=== PATIENT | male | born 1950 | race Caucasian/White ===

== ENCOUNTER 2020-09-16 07:15 | Outpatient (REF) | payer MEDICARE, MEDICAID, SELFPAY | END 2020-09-16 07:16 | disposition home or self-care (01) | LOC: HO.LAB 07:15 | PROVIDERS: PCP Internal Medicine; Visit Provider Internal Medicine | DX: Z20.828 Contact with and (suspected) exposure to other viral communicable diseases (principal) | CPT/HCPCS: C9803; U0003 ==

== ENCOUNTER 2020-11-04 09:07 | Outpatient (REF) | payer MEDICARE, MEDICAID, SELFPAY ==
[2020-11-04 11:11] LABS: MANUAL DIFF FLAG NO
[2020-11-04 11:25] LABS: Glucose Urine UA NEG (NEG); Leukocyte Esterase Urine NEG (NEG); Nitrite Urine NEG (NEG); Specific Gravity - Urine 1.025 (1.005-1.025); Urine Blood NEG (NEG); Urine Ketones NEG (NEG); Urine Protein NEG (NEG-TRACE)
[2020-11-04 11:28] LABS: Appearance Urine CLEAR; Color Urine YELLOW
[2020-11-04 11:39] LABS: Basophils Percent Auto 0.6 % (0-2); Eosinophils Absolute Auto 0.3 X10*3/uL (0.0-0.4); Hematocrit 52.1 % (42-52); Hemoglobin 17.2 g/dl (14.0-18.0); Imm Gran Abs Auto 0.02 X10*3/uL (0.00-0.03); Imm Gran Pct Auto 0.4 % (0.0-0.4); Lymphocytes Absolute Auto 1.1 X10*3/uL (1.2-4.9); Lymphocytes Percent Auto 21.5 % (20-40); Mean Corpuscular Hemoglobin 30.2 pg (27.0-33.0); Mean Corpuscular Volume 91.6 fL (80-98); Mean Platelet Volume 11.2 fL (9.4-12.4); Monocytes Absolute Auto 0.7 X10*3/uL (0.1-1.2); Monocytes Percent Auto 12.9 % (2-11); Neutrophils Percent Auto 59.6 % (45-73); Platelet Count 189 X10*3/uL (160-400); Red Blood Count 5.69 X10*6/uL (4.60-5.80); Red Cell Distribution Width 13.4 % (11.0-16.0)
[2020-11-04 11:51] LABS: Alanine Aminotransferase 20 U/L (0-40); Albumin Level 4.3 g/dL (3.5-5.0); Alkaline Phosphatase 97 U/L (39-117); Anion Gap 11 (12-20); Aspartate Amino Transferase 22 U/L (5-37); Bilirubin Total 1.7 mg/dL (0.0-1.0); Blood Urea Nitrogen 16 mg/dL (9-16); Calcium 9.2 mg/dL (8.4-10.2); Carbon Dioxide 29 mmol/L (22-29); Chloride 104 mmol/L (96-108); Cholesterol 190 mg/dL; Estimated Glomerular Filt Rate > 60; Glucose Fasting 99 mg/dL (60-99); HDL Cholesterol 58 mg/dL; LDL Cholesterol Calculated 119 mg/dl; Potassium 4.3 mmol/L (3.3-5.1); Sodium 140 mmol/L (135-145); Total Protein 7.3 g/dL (6.5-8.0); Triglycerides 66 mg/dL
[2020-11-04 12:16] LABS: RBC Urine 0-2 /HPF (0); WBC Urine 0-2 /HPF (0-4)
[2020-11-04 12:17] LABS: Mucus Urine 1+ /LPF; Squamous Epithelial Cell Urine 1+ /LPF
[2020-11-04 12:19] LABS: Prostate Specific Antigen Scr 1.82 ng/mL (<0.05-4.0)
== END 2020-11-04 09:08 | disposition home or self-care (01) ==
LOC: HO.HMGCLDS 09:07
PROVIDERS: PCP Internal Medicine; Visit Provider Internal Medicine
DX: E78.5 Hyperlipidemia, unspecified (principal); F41.9 Anxiety disorder, unspecified; Z87.891 Personal history of nicotine dependence; Z12.5 Encounter for screening for malignant neoplasm of prostate
CPT/HCPCS: 36415; 80053; 80061; 81001; 84153; 85025

== ENCOUNTER 2020-12-01 09:42 | Outpatient (REF) | payer MEDICARE, MEDICAID, SELFPAY ==
--- NOTE | ~2020-12-01 | CT_ITS ---
EXAMINATION: CT CHEST SCREENING CLINICAL INFORMATION: Personal history of nicotine dependence. COMPARISON: None. TECHNIQUE: Multidetector volumetric CT imaging of the chest is performed without contrast using low dose technique. Additional 2D coronal and sagittal reformatted images and axial 3D maximum intensity projection (MIP) images are generated on the CT workstation. This CT examination was performed using dose optimization techniques as appropriate, variously including the following: *Automated exposure control *Adjustment of mA and/or kV according to patient size (this includes techniques or standardized protocols for targeted exams where dose is matched to indication/reason for exam; i.e. extremities or head) *Use of iterative reconstruction technique DLP: 77 mGy-cm FINDINGS: LUNGS: The lungs are well expanded and clear of acute pneumonic consolidation. There is minimal atelectatic changes in both lung bases. There are bilateral 3 cm cysts in both lung bases. MEDIASTINUM: The thyroid lobes are symmetrical and normal. The central trachea and the bronchi are widely patent. The heart size and great vessels are normal caliber. There are coronary artery calcifications present. PLEURA: There is no pleural effusion. No pleural mass or thickening. AXILLA: No lymphadenopathy. UPPER ABDOMEN: Visualized liver, spleen and pancreas is unremarkable. OSSEOUS STRUCTURES: No lytic or sclerotic process seen. There is moderate ventral spondylosis throughout mid and lower dorsal spine. No lytic process. CT/CT lung screening IMPRESSION: No evidence of pulmonary nodule, mass or consolidation. Minimal atelectatic changes in both lung bases. ASSESSMENT: Lung-RADS category: 1, benign RECOMMENDATION: Low dose annual CT chest exam.
== END 2020-12-01 09:43 | disposition home or self-care (01) ==
LOC: HO.CT 09:42
PROVIDERS: Visit Provider Physician Assistant Medical
DX: Z12.2 Encounter for screening for malignant neoplasm of respiratory organs (principal); Z87.891 Personal history of nicotine dependence
CPT/HCPCS: 71271

== ENCOUNTER 2021-07-29 13:15 | Outpatient (REF) | payer MEDICARE, MEDICAID, SELFPAY ==
--- NOTE | ~2021-07-29 | XR_ITS ---
EXAMINATION: XR KNEE, LEFT CLINICAL INFORMATION: Pain. COMPARISON: No similar priors. TECHNIQUE: Four views of the left knee. FINDINGS: No evidence of acute fractures or malalignment. There are mild degenerative changes with joint space narrowing, subcortical sclerosis and osteophytes, more prominent in the medial compartment. Enthesophytes as well as visualized in the upper pole of the patella. No erosive changes or chondrocalcinosis. Very mild vascular calcifications. No joint effusions. XR/XR knee LT 4V IMPRESSION: No acute osseous fractures or malalignment. Mild degenerative osteoarthritis as above.
== END 2021-07-29 13:16 | disposition home or self-care (01) ==
LOC: HO.HMGCX 13:15
PROVIDERS: PCP Internal Medicine; Visit Provider Internal Medicine
DX: M70.50 Other bursitis of knee, unspecified knee (principal)
CPT/HCPCS: 73564

== ENCOUNTER 2021-08-23 08:16 | Outpatient (REF) | payer MEDICARE, MEDICAID, SELFPAY ==
--- NOTE | ~2021-08-23 | XR_ITS ---
EXAMINATION: XR KNEE AP STANDING CLINICAL INFORMATION: Pain COMPARISON: Left knee x-ray 07/29/2021 TECHNIQUE: AP bilateral standing view of the knees was obtained. FINDINGS: Bone alignment is normal. No fracture or dislocation is seen. There is mild left medial femoral tibial joint space narrowing. Soft tissues are unremarkable. XR/XR knee standing BI IMPRESSION: Mild left medial femoral tibial joint space narrowing.
== END 2021-08-23 08:17 | disposition home or self-care (01) ==
LOC: HO.HOSX 08:16
PROVIDERS: PCP Internal Medicine; Visit Provider Orthopaedic Surgery
DX: M23.92 Unspecified internal derangement of left knee (principal)
CPT/HCPCS: 73565; 99202

== ENCOUNTER 2021-11-15 08:18 | Outpatient (REF) | payer MEDICARE, MEDICAID, SELFPAY ==
[2021-11-15 11:17] LABS: Hematocrit 49.6 % (42.0-52.0); Hemoglobin 16.2 g/dl (14.0-18.0); Mean Corpuscular HGB Conc 32.7 g/dl (31.0-36.0); Mean Corpuscular Volume 91.9 fL (80.0-98.0); Mean Platelet Volume 11.4 fL (9.4-12.4); Platelet Count 180 X10*3/uL (160-400); Red Cell Distribution Width 13.1 % (11.0-16.0); White Blood Count 5.7 X10*3/uL (4.8-10.8)
[2021-11-15 11:40] LABS: Alanine Aminotransferase 18 U/L (0-40); Albumin Level 4.2 g/dL (3.5-5.0); Alkaline Phosphatase 81 U/L (39-117); Anion Gap 13 (12-20); Aspartate Amino Transferase 19 U/L (5-37); Bilirubin Total 1.7 mg/dL (0.0-1.0); Blood Urea Nitrogen 19 mg/dL (9-16); Calcium 9.2 mg/dL (8.4-10.2); Carbon Dioxide 24 mmol/L (22-29); Chloride 106 mmol/L (96-108); Cholesterol 172 mg/dL; Estimated Glomerular Filt Rate > 60; Glucose Fasting 101 mg/dL (60-99); HDL Cholesterol 44 mg/dL; LDL Cholesterol Calculated 115 mg/dl; Potassium 3.9 mmol/L (3.3-5.1); Sodium 139 mmol/L (135-145); Total Protein 7.2 g/dL (6.5-8.0); Triglycerides 68 mg/dL
[2021-11-15 12:04] LABS: Prostate Specific Antigen Scr 1.84 ng/mL (<0.05-4.0)
== END 2021-11-15 08:19 | disposition home or self-care (01) ==
LOC: HO.HMGCLDS 08:18
PROVIDERS: PCP Internal Medicine; Visit Provider Internal Medicine
DX: Z12.5 Encounter for screening for malignant neoplasm of prostate (principal); E78.5 Hyperlipidemia, unspecified; F41.9 Anxiety disorder, unspecified; J44.9 Chronic obstructive pulmonary disease, unspecified
CPT/HCPCS: 36415; 80053; 80061; 84153; 85027

== ENCOUNTER 2021-11-25 19:06 | Outpatient (REF) | payer MEDICARE, MEDICAID, SELFPAY ==
--- NOTE | ~2021-11-25 | MR_ITS ---
EXAMINATION: MR KNEE WITHOUT CONTRAST, LEFT CLINICAL INFORMATION: Left knee pain. Medial discomfort. Symptoms x6 months. COMPARISON: Radiograph dated 08/23/2021. TECHNIQUE: MRI of the knee without contrast was performed using routine sequences on a high-field scanner. FINDINGS: MENISCI: Medial Meniscus: There is a complex tear of the posterior horn and body with an extruded flap fragment in the medial meniscofemoral recess measuring 1 x 1.2 cm. A radial component to the tear in this region extends to the inner two-thirds of the meniscal cross-section with surrounding fraying. There is a horizontal component extending into the posterior horn with significant associated meniscal fraying. Lateral Meniscus: Intact LIGAMENTS: Cruciate: The ACL is low in signal intensity diffusely with loss of normal fibrillar pattern, potentially due to scar tissue from an old sprain. No tears or laxity. PCL is normal. Collateral: Edema signal around the MCL is likely reactive to the underlying meniscal abnormality. Collateral ligaments are intact. EXTENSOR MECHANISM: Enthesopathic spurring is present at the quadriceps tendon insertion on the patella. Quadriceps and patellar tendons are normal. Edema signal is present around the iliotibial band at the level of the lateral femoral epicondyle. ARTICULAR CARTILAGE/BONE: Patellofemoral Compartment: There is nonuniform articular cartilage loss at the lateral patellar facet over an area measuring 1.5 x 0.7 cm with partial-thickness chondral fissuring. There is more mild surrounding nonuniform cartilage loss in this region. At the trochlea, there is a 1.8 x 0.6 cm area of partial-thickness cartilage loss and full-thickness fissuring with underlying articular cortical irregularity. Lateral trochlear inclination angle measures 6 degrees. Sulcus angle measures 146 degrees, borderline shallow. There is a medial patellar plica which is mildly thickened with adjacent edema signal. TT TG distance measures 1 cm. Medial Compartment: Moderate nonuniform chondral thinning is present at the medial femoral condyle with full-thickness fissuring, articular cortical irregularity, subcortical cystic change, and subcortical edema. There is moderate nonuniform cartilage loss at the medial half of the medial tibial plateau with a small 5 x 4 mm focus of full-thickness cartilage loss with underlying subchondral edema and cystic change. Small marginal osteophytes. Lateral Compartment: Small marginal osteophytes. Articular cartilage appears relatively well-preserved. JOINT FLUID AND BURSAE: Small joint effusion. No Solorzano's cyst. Mild pes anserine bursitis, likely reactive to the meniscal pathology. MR/MR knee LT wo con IMPRESSION: 1. Complex tear of the posterior horn and body of the medial meniscus with an extruded flap at the meniscal body as well as a dominant radial component. 2. Mild to moderate medial compartment osteoarthritis. More mild osteoarthritis in the patellofemoral compartment. 3. Small joint effusion. Mild pes anserine bursitis. 4. Edema signal around the iliotibial band at the level of the lateral femoral condyle may be reactive to the intra-articular pathology, though iliotibial band friction syndrome is also on the differential. 5. ACL morphology and low signal intensity are atypical and may correspond to chronic changes of an old sprain. No tears or laxity.
== END 2021-11-25 19:07 | disposition home or self-care (01) ==
LOC: HO.MRI 19:06
PROVIDERS: Visit Provider Orthopaedic Surgery
DX: M25.562 Pain in left knee (principal); M23.92 Unspecified internal derangement of left knee
CPT/HCPCS: 73721

== ENCOUNTER → 2021-12-09 14:16 | Outpatient (BNVA) | payer MEDICARE, MEDICAID, SELFPAY | PROVIDERS: PCP Internal Medicine; Visit Provider Orthopaedic Surgery | DX: S83.242D Other tear of medial meniscus, current injury, left knee, subsequent encounter (principal) | CPT/HCPCS: 20610; 99212; J1100 ==

== ENCOUNTER → 2022-03-10 08:27 | Outpatient (BNVA) | payer MEDICARE, MEDICAID, SELFPAY | PROVIDERS: PCP Internal Medicine; Visit Provider Orthopaedic Surgery | DX: S83.242A Other tear of medial meniscus, current injury, left knee, initial encounter (principal) | CPT/HCPCS: 99212 ==

== ENCOUNTER 2022-03-30 06:47 | Day surgery (SDC) | payer MEDICARE, MEDICAID, SELFPAY ==
[2022-03-23 12:15] VITALS: BMI 31.1
[2022-03-30] VITALS (7 sets, daily range): BP systolic 126–146; BP diastolic 67–78; PULSE 82–96; RESP 12–16; TEMP 36.2–37.4; O2SAT 93–95; BMI 30.2
--- NOTE | 2022-03-30 07:53 | P.CONAN_ITS ---
[facility] Active Problems Active Problems: All Active Problems (Updated 12/09/21 @ 15:16 by Emiliano Malone MD) Tear of medial meniscus of left knee (Acute) H/O colonoscopy (Acute) Annual physical exam (Acute) Dupuytren's contracture of right hand (Acute) Knee locking (Acute) Knee pain (Acute) Sciatica (Acute) Pes anserine bursitis (Acute) Headache (Acute) Muscle spasms of neck (Acute) Hyperlipidemia (Acute) Anxiety (Acute) COPD (chronic obstructive pulmonary disease) (Acute) Ex-smoker (Acute) Past Medical History Medical History Chronic anxiety Eczema Family History Family History Father No problems noted. Family history of problems with anesthesia: No Surgical History Surgical History H/O colonoscopy History of Problems with Anesthesia: No Social History Social History Housing: House Alcohol intake: never Patient Tobacco Use Status: Former Tobacco user e-Cigarette/Vaping Use: Never Used Second Hand Smoke Exposure: No Use of substances other than those prescribed or required for medical reasons: No Are you DNR?: No Advance Directives: No Advance Directives Information Provided: Yes service: No Current occupational status: retired Meds Allergies Allergy/AdvReac Type Severity Reaction Status Date / Time No Known Allergies Allergy Verified 03/10/22 08:41 Active Medications: Current Medications Lactated Ringer's (Lr) 1,000 mls @ 100 mls/hr IVCONT .Q10H DANIEL Exam Exam Date and Time: March 30, 2022 0753 Height,Weight and Vital Signs: Height 5 ft 5 in Weight 82.554 kg Last Vital Signs Temp 98.1 F 03/30/22 07:05 Pulse 85 03/30/22 07:05 Resp 16 03/30/22 07:05 BP 146/78 H 03/30/22 07:05 Pulse Ox 95 03/30/22 07:05 O2 Del Method 03/30/22 07:05 Airway Mallampati Class: III TM Dist: >3cm Neck ROM: Full Denture: Upper and Lower Assessment and Plan Assessment Anesthesia Assessment: Anesthesia Plan Discussed and Chart Reviewed Final Anesthetic Review Family History of Problems with Anesthesia: No History of Problems with Anesthesia: No NPO: Yes ASA Class: II Final Preanesthetic Review: No Changes in Pt Med Stat, Meds/Allgs Chart Reviewed, Consent Obtained/Reviewed and Anes Risks/Benef Reviewed Patient Risk: Intermediate Procedure Risk: Intermediate Anesthetic Plan Anesthetic Plan: GA Disposition: Standard PACU
[2022-03-30] MEDS: Lactated Ringers 1,000 ML 100 ML IVCONT (08:08)
--- NOTE | 2022-03-31 17:35 | P.BOP_ITS ---
Brief Operative Note Date of Service: 03/30/22 Pre-op diagnosis: Left knee MMT Post-op diagnosis: other (Left knee MMT, medial plica and OA) Procedure: Partial medial meniscectomy, Plica resection and chondroplasty Implants: none Surgeon: Emiliano Malone MD Anesthesia: GETA and local Was an Canteen Operator used for this Procedure?: No Estimated blood loss (mL): 5 IV fluids (mL): 800 Pathology: none sent Condition: stable Disposition: PACU
--- NOTE | 2022-03-31 17:52 | W.PM.OPN ---
Operative Note Operative Note Date of Service: 03/30/22 Narrative: Date of Service: 03/30/22 Pre-op diagnosis: Left knee MMT Post-op diagnosis: other (Left knee MMT, medial plica and OA) Procedure: Partial medial meniscectomy, Plica resection and chondroplasty Implants: none Surgeon: Emiliano Malone MD Anesthesia: GETA and local Was an Wind Turbine Performance Engineer used for this Procedure?: No Estimated blood loss (mL): 5 IV fluids (mL): 800 Pathology: none sent Condition: stable Disposition: PACU Patient was brought to the operating room placed supine on the arthroscopic table and prepped and draped in standard sterile fashion. A time-out was called to identify proper site proper procedure proper surgeon and IV antibiotics per weight were administered. I began by exsanguinating the limb and insufflating tourniquet to 300 mm Hg. Then made a standard anterolateral stab incision. The knee was insufflated with water and 30 degree arthroscope was placed. There was grade 1 fibrillations of the patella but overall suprapatellar pouch was plane and the gutters were clean. There was a large medial plica that made entry into the medial compartment difficulty. I descended into the medial compartment where I made my medial portal under direct visualization. I resected the plica with a shaver. I examined the medial compartment and there was obvious of complex tear of the body and posterior horn of the medial meniscus. The root was intact and there was grade 2/3 changes with some scattered grade 4 changes throughout the medial compartment, especially the MFC. I used a combination of biter shaver and cautery to remove unstable portions of the meniscus. Approximately 60% meniscal volume was removed. A chondroplasty was perforemd with a shaver and the wand. Once I was satisfied with this the ACL was examined and found to be intact and the lateral compartment also was without the need for intervention. I then removed all instrumentation and closed the portals with skin glue. 25 mL of 2% Marcaine with epinephrine was injected into the joint and the surrounding soft tissues. Patient was then placed in sterile dressing extubated brought recovery room stable condition. There were no known complications.
== END 2022-03-30 11:30 | disposition home or self-care (01) ==
PROVIDERS: PCP Internal Medicine; Visit Provider Orthopaedic Surgery
PROC: (CPT 29870; principal; 2022-03-30 08:30)
DX: S83.232A Complex tear of medial meniscus, current injury, left knee, initial encounter (principal); M67.52 Plica syndrome, left knee; M17.12 Unilateral primary osteoarthritis, left knee; M71.562 Other bursitis, not elsewhere classified, left knee; M25.462 Effusion, left knee; X58.XXXA Exposure to other specified factors, initial encounter; Y93.9 Activity, unspecified; Y92.9 Unspecified place or not applicable; Y99.8 Other external cause status; L30.9 Dermatitis, unspecified; F41.8 Other specified anxiety disorders; Z79.899 Other long term (current) drug therapy; Z87.891 Personal history of nicotine dependence
CPT/HCPCS: 29881; J0171; J0690; J1100; J2250; J2370; J2405; J3010

== ENCOUNTER 2022-04-04 09:16 | Outpatient (RCR) | payer MEDICARE, MEDICAID, SELFPAY ==
--- NOTE | 2022-04-04 13:30 | MHC.PT.DC ---
[facility] [place] Office [place] Office [place] Office [address] Nupur Alvarez [address] [facility] [phone] F: [phone] F: [phone] F: [phone] F: [phone] Physical Therapy Discharge Report Diagnosis: LEFT KNEE Partial medial meniscectomy, Plica resection and chondroplasty Date of Surgery: 03/30/22 Date of Evaluation: 04/04/22 Date of Discharge: 04/04/22 Treatments to Date: 1 Cancellations to Date: No Shows to Date: Discharge Status: Improved Function Independent with HEP Physician Discontinued Tx Discharge Summary: 72 YO MALE REF TO PT S/P LEFT KNEE Partial medial meniscectomy, Plica resection and chondroplasty ON 03/30/22. HE IS CURRENTLY AMB W [address] [facility]. OBJECTIVE FINDINGS: LIMITED AROM Lt KNEE, TIGHT PSOAS MM SONAM AND DECR ANKLE DF SONAM; DECR STRENGTH IN PROX / LUMBOPELVIC AND Lt LE, POST-OP PAIN IN LEFT KNEE ,AND HEALING ANT Lt KNEE INCISIONS. FUNCTIONALLY, Pt HAS COMPENSATORY GAIT, MODIFIED STAIR MGMT, DECR STANDING, SLEEPING, AND DECR NED TO ADLs REQ KNEE FLEX. Pt IS A VERY GOOD PT CANDIDATE TO GUIDE HIM IN HIS POST-OP COURSE, ADDRESSING THE ABOVE FINDINGS, PAIN MGMT, AND MAXIMIZING FUNCTIONAL INDEPENDENCE. Electronically signed by: Clarisse Yates, PT Please sign and return to therapist. Thank you for your referral.
== END 2022-04-04 13:14 | disposition home or self-care (01) ==
LOC: HO.PT 09:16
PROVIDERS: Visit Provider Physician Assistant
DX: S83.242A Other tear of medial meniscus, current injury, left knee, initial encounter (principal)
CPT/HCPCS: 97110; 97162

== ENCOUNTER 2022-11-15 13:03 | Outpatient (REF) | payer MEDICARE, MEDICAID, SELFPAY ==
--- NOTE | ~2022-11-15 | XR_ITS ---
EXAMINATION: XR SHOULDER, LEFT CLINICAL INFORMATION: Left shoulder pain COMPARISON: None TECHNIQUE: Four views of the left shoulder. FINDINGS: There are multiple radiopaque anchors in the left humeral head. No fracture or dislocation. The glenohumeral joint is well aligned. The joint space is maintained. Small marginal osteophytes are present. The acromioclavicular joint is intact with mild hypertrophic degenerative change. The visualized lung is clear. The visualized ribs are intact. XR/XR shoulder LT min 2V IMPRESSION: Mild degenerative changes of the left shoulder.
== END 2022-11-15 13:04 | disposition home or self-care (01) ==
LOC: HO.HMGCX 13:03
PROVIDERS: PCP Internal Medicine; Visit Provider Internal Medicine
DX: M25.512 Pain in left shoulder (principal); M25.511 Pain in right shoulder
CPT/HCPCS: 73030

== ENCOUNTER 2022-11-16 09:33 | Outpatient (REF) | payer MEDICARE, MEDICAID, SELFPAY ==
[2022-11-16 11:13] LABS: MANUAL DIFF FLAG NO
[2022-11-16 11:19] LABS: Basophils Percent Auto 0.6 % (0-2); Eosinophils Absolute Auto 0.2 X10*3/uL (0.0-0.4); Eosinophils Percent Auto 2.5 % (0-4); Hematocrit 49.4 % (42.0-52.0); Hemoglobin 16.1 g/dl (14.0-18.0); Imm Gran Abs Auto 0.01 X10*3/uL (0.00-0.03); Imm Gran Pct Auto 0.1 % (0.0-0.4); Lymphocytes Absolute Auto 1.2 X10*3/uL (1.2-4.9); Lymphocytes Percent Auto 16.4 % (20-40); Mean Corpuscular HGB Conc 32.6 g/dl (31.0-36.0); Mean Corpuscular Hemoglobin 29.9 pg (27.0-33.0); Mean Corpuscular Volume 91.8 fL (80.0-98.0); Mean Platelet Volume 11.7 fL (9.4-12.4); Monocytes Absolute Auto 0.9 X10*3/uL (0.1-1.2); Monocytes Percent Auto 12.2 % (2-11); Neutrophils Absolute Auto 4.9 x10*3/uL (2.0-8.3); Neutrophils Percent Auto 68.2 % (45-73); Platelet Count 191 X10*3/uL (160-400); Red Blood Count 5.38 X10*6/uL (4.60-5.80); Red Cell Distribution Width 13.4 % (11.0-16.0); White Blood Count 7.1 X10*3/uL (4.8-10.8)
[2022-11-16 11:55] LABS: Alanine Aminotransferase 20 U/L (0-40); Albumin Level 4.2 g/dL (3.5-5.0); Alkaline Phosphatase 95 U/L (39-117); Anion Gap 12 (12-20); Aspartate Amino Transferase 19 U/L (5-37); Blood Urea Nitrogen 19 mg/dL (9-16); Calcium 9.4 mg/dL (8.4-10.2); Carbon Dioxide 27 mmol/L (22-29); Chloride 108 mmol/L (96-108); Cholesterol 176 mg/dL; Estimated Glomerular Filt Rate > 60; Glucose Fasting 106 mg/dL (60-99); HDL Cholesterol 46 mg/dL; LDL Cholesterol Calculated 118 mg/dl; PSA,Total (Free>4and<10) 2.14 ng/mL (0.00-4.00); Potassium 4.6 mmol/L (3.3-5.1); Sodium 142 mmol/L (135-145); Triglycerides 61 mg/dL
== END 2022-11-16 09:34 | disposition home or self-care (01) ==
LOC: HO.HMGCLDS 09:33
PROVIDERS: PCP Internal Medicine; Visit Provider Internal Medicine
DX: Z00.00 Encounter for general adult medical examination without abnormal findings (principal); Z12.5 Encounter for screening for malignant neoplasm of prostate; E78.5 Hyperlipidemia, unspecified
CPT/HCPCS: 36415; 80053; 80061; 84153; 85025

== ENCOUNTER 2022-11-23 07:51 | Outpatient (REF) | payer MEDICARE, MEDICAID, SELFPAY ==
[2022-11-23 12:31] LABS: Bilirubin Direct 0.4 mg/dL (0.0-0.5); Gamma Glutamyl Transpeptidase 52 U/L (11-51); Iron 82 mcg/dL (45-160); Percent Iron Saturation 30 % (15-50); Total Iron Binding Capacity 274 mcg/dL (228-428); Unsaturated Iron Binding 192 ug/dL
[2022-11-24 14:43] LABS: Haptoglobin 233 mg/dL (43-212)
[2022-11-25 09:13] LABS: HBS Num1 0.08 mIU/mL (0-7.99); HBsAGNum1 0.37 S/CO (0.00-0.99); Hepatitis B Core Antibody Nonreactive (Nonreactive); Hepatitis B Surface Antigen Negative (Negative); ~HepC Num1 0.27 S/CO (0.00-0.79); ~Hepatitis B Surface Antibody NONREACTIVE (Nonreactive); ~Hepatitis C Antibody Nonreactive (Nonreactive)
== END 2022-11-23 07:52 | disposition home or self-care (01) ==
LOC: HO.HMGCLDS 07:51
PROVIDERS: PCP Internal Medicine; Visit Provider Internal Medicine
DX: R17 Unspecified jaundice (principal)
CPT/HCPCS: 36415; 82248; 82977; 83010; 83540; 86704; 86706; 86803; 87340

== ENCOUNTER 2022-12-16 09:03 | Outpatient (REF) | payer MEDICARE, MEDICAID, SELFPAY ==
--- NOTE | ~2022-12-16 | US_ITS ---
EXAMINATION: US ABDOMEN LIMITED WITH LIVER ELASTOGRAPHY CLINICAL INFORMATION: Jaundice. COMPARISON: None available. TECHNIQUE: Real-time imaging of the abdominal viscera. Noninvasive ultrasound liver fibrosis assessment is performed using Gris ElastPQ point quantification shear wave elastography (2D-SWE) with a C5-2 MHz transducer. Multiple elastography samples are obtained. FINDINGS: PANCREAS: Largely obscured from visualization by overlapping bowel gas. LIVER: The liver demonstrates normal size, contour and slightly increased echogenicity. No focal lesion or intrahepatic biliary duct dilatation. The right lobe measures 14.6 cm in length. The left lobe measures 10.9 cm in length. Portal flow is towards the liver (hepatopetal). Shear wave liver elastography median stiffness is 1.02 m/s (reference: normal median stiffness is 1.3 m/s or less). IQR/median stiffness to assess sampling precision is 0.14 (reference: good quality data set is IQR/median stiffness of 0.15 or less). GALLBLADDER: Normal. The gallbladder is physiologically distended without evidence of stones, sludge, polyps, wall thickening or pericholecystic fluid. COMMON BILE DUCT: Normal in caliber measuring 0.3 cm in diameter. RIGHT KIDNEY: At the lower pole, a 9 mm in maximal diameter anechoic, simple cyst is seen. This is a benign finding, for which no imaging follow-up is recommended. At the lower pole, 4 mm and 3 mm nonobstructing calculi are seen, with twinkle artifact. No hydronephrosis. No focal parenchymal lesions. The right kidney measures 12.6 cm in maximum dimension. FREE FLUID: None. US/US abdomen child w elastography IMPRESSION: 1. There is mild generalized increase in hepatic echotexture, consistent with fatty infiltration or hepatocellular disease. Please correlate clinically. No focal hepatic mass or intrahepatic biliary dilatation is seen. 2. Liver elastography: Measurements are consistent with a high probability of normal liver stiffness. 3. There are nonobstructing right renal calculi. No right hydronephrosis is noted. REFERENCE: Society of Radiologists in Ultrasound Liver Stiffness Thresholds (2019): LIVER STIFFNESS THRESHOLDS: *Liver Stiffness equal or less than 1.3 m/s: High probability of being normal. *Liver Stiffness less than 1.7 m/s: In the absence of other known clinical signs, rules out compensated advanced chronic liver disease. *Liver Stiffness 1.7-2.1 m/s: Suggestive of compensated advanced chronic liver disease but need further test for confirmation. *Liver Stiffness over 2.1 m/s: Rules in compensated advanced chronic liver disease. *Liver Stiffness over 2.4 m/s: Suggestive of clinically significant portal hypertension. QUALITY OF DATA SET: *IQR/Median value equal or less than 0.15 implies a quality data set. *IQR/Median value over 0.15 implies a poor quality data set. SIGNIFICANT CHANGE FROM PRIOR EXAM: Significant change if liver stiffness measurement is 10% or greater from prior exam. OTHER CONSIDERATIONS: The stage of liver fibrosis may be overestimated in the setting of acute hepatitis, liver inflammation, elevated liver function tests, hepatic vascular congestion, obstructive cholestasis, non-fasting state, and infiltrative diseases such as amyloidosis and lymphoma. In some patients with NAFLD, the liver stiffness thresholds for compensated advanced chronic liver disease may be lower. In causes other than viral hepatitis and NAFLD, liver stiffness thresholds are not well established.
== END 2022-12-16 09:04 | disposition home or self-care (01) ==
LOC: HO.US 09:03
PROVIDERS: PCP Internal Medicine; Visit Provider Internal Medicine
DX: R17 Unspecified jaundice (principal)
CPT/HCPCS: 76705; 76981

== ENCOUNTER 2023-04-11 06:57 | Outpatient (REF) | payer MEDICARE, MEDICAID, SELFPAY ==
[2023-04-11 11:25] LABS: MANUAL DIFF FLAG NO
[2023-04-11 11:54] LABS: Basophils Percent Auto 0.6 % (0-2); Eosinophils Absolute Auto 0.3 X10*3/uL (0.0-0.4); Eosinophils Percent Auto 5.1 % (0-4); Hematocrit 50.7 % (42.0-52.0); Hemoglobin 16.6 g/dl (14.0-18.0); Imm Gran Abs Auto 0.02 X10*3/uL (0.00-0.03); Imm Gran Pct Auto 0.3 % (0.0-0.4); Lymphocytes Absolute Auto 1.3 X10*3/uL (1.2-4.9); Mean Corpuscular HGB Conc 32.7 g/dl (31.0-36.0); Mean Corpuscular Hemoglobin 29.9 pg (27.0-33.0); Mean Corpuscular Volume 91.4 fL (80.0-98.0); Mean Platelet Volume 11.1 fL (9.4-12.4); Monocytes Absolute Auto 0.7 X10*3/uL (0.1-1.2); Monocytes Percent Auto 11.4 % (2-11); Neutrophils Absolute Auto 3.9 x10*3/uL (2.0-8.3); Neutrophils Percent Auto 62.6 % (45-73); Platelet Count 168 X10*3/uL (160-400); Red Blood Count 5.55 X10*6/uL (4.60-5.80); Red Cell Distribution Width 13.6 % (11.0-16.0); White Blood Count 6.2 X10*3/uL (4.8-10.8)
[2023-04-11 12:13] LABS: Alanine Aminotransferase 16 U/L (0-40); Albumin Level 4.1 g/dL (3.5-5.0); Alkaline Phosphatase 77 U/L (39-117); Anion Gap 12 (12-20); Aspartate Amino Transferase 18 U/L (5-37); Bilirubin Total 1.5 mg/dL (0.0-1.0); Blood Urea Nitrogen 17 mg/dL (9-16); Calcium 9.7 mg/dL (8.4-10.2); Carbon Dioxide 26 mmol/L (22-29); Chloride 105 mmol/L (96-108); Cholesterol 171 mg/dL; Estimated Glomerular Filt Rate > 60; Glucose Fasting 105 mg/dL (60-99); HDL Cholesterol 50 mg/dL; LDL Cholesterol Calculated 108 mg/dl; Potassium 4.2 mmol/L (3.3-5.1); Sodium 139 mmol/L (135-145); Total Protein 7.3 g/dL (6.5-8.0); Triglycerides 68 mg/dL
== END 2023-04-11 06:58 | disposition home or self-care (01) ==
LOC: HO.HMGCLDS 06:57
PROVIDERS: PCP Internal Medicine; Visit Provider Internal Medicine
DX: J44.9 Chronic obstructive pulmonary disease, unspecified (principal); I10 Essential (primary) hypertension; E78.5 Hyperlipidemia, unspecified
CPT/HCPCS: 36415; 80053; 80061; 85025

== ENCOUNTER 2023-04-18 10:03 | Outpatient (AMB) | payer MEDICARE, MEDICAID, SELFPAY ==
[2023-04-18 10:39] VITALS: BP 122/66; PULSE 69; O2SAT 95
--- NOTE | 2023-04-18 10:39 | A.OFFPC_ITS ---
Vital Signs 04/18/23 10:39 Height 5 ft 5 in Weight 180 lb BMI 30.0 BP 122/66 Blood Pressure Location Lt brachial Position Sitting Pulse 69 Pulse Source Pulse Oximeter Pulse Oximetry (%) 95 Oxygen Delivery Method Room Air Intake Visit Reasons: 3m followup Intake Note: Pt is here today for 3 months follow up visit.Pt states that his BP has been fluctuating. Allergies No Known Allergies Allergy (Verified 04/18/23 10:40) Medication List - Last Reconciled 04/18/23 by Carla Reyes MD atorvastatin 10 mg PO DAILY diclofenac sodium 1% 2 grams topical QID metoprolol succinate ER 50 mg PO DAILY paroxetine HCl 40 mg PO DAILY tiotropium-olodaterol 2.5-2.5 mcg/actuation (Stiolto Respimat) 2 puffs inhalation DAILY triamcinolone acetonide 0.1% 1 appl topical BID Tobacco use date assessed: 04/18/23 Fall risk assessment: No Falls in past year Last assessed Fall Risk: 04/18/23 Dental Screening Dental Screen Date: 04/18/23 Did you have a dental visit in the last 12 months?: No Did you have a dental problem in the last 6 months where you did not have access to dental care?: No Was dental information given to patient?: Patient declined HPI 3m followup HPI Details Pt presents for HTN, hyperlipid, COPD, stable on meds. [facility] Medical History Annual physical exam Chronic anxiety COPD (chronic obstructive pulmonary disease) Dupuytren's contracture of right hand Eczema Ex-smoker Hyperlipidemia Knee pain Pes anserine bursitis Sciatica Surgical History H/O colonoscopy Family History Father No problems noted. Social History Housing: House Alcohol intake: never Patient Tobacco Use Status: Former Tobacco user e-Cigarette/Vaping Use: Never Used Second Hand Smoke Exposure: No service: No Current occupational status: retired Cognitive needs: No Hearing needs: No Vision needs: No Questionnaire Thrive Questionnaire Date Thrive assessed: 11/15/22 AUDIT C Alcohol Use Questionnaire (AUDIT-C) 1. How often do you have a drink containing alcohol?: Never 3. How often do you have six or more drinks on one occasion?: Never Total Score: 0 CORRINA-7 AMB Questionnaire CORRINA-7 Date CORRINA - 7 assessed: 11/15/22 Source: Developed by Drs. Matthew Parker, Miya Neri, David Abernathy and colleagues, with an educational nnamdi from [employer]. Review of Systems Const All systems reviewed & are unremarkable except as noted in HPI and below Reports no additional complaints Eyes Reports no additional complaints ENT Reports no additional complaints Card Reports no additional complaints Resp Reports no additional complaints GI Reports no additional complaints Reports no additional complaints Neuro Reports no additional complaints Physical exam (Primary Care) Vital Signs: Last Vital Signs Pulse 69 04/18/23 10:39 BP 122/66 04/18/23 10:39 Pulse Ox 95 04/18/23 10:39 Oxygen Delivery Method Room Air 04/18/23 10:39 BMI result Body Mass Index 30.0 Tobacco/Smoking Status: Tobacco use Status Tobacco use date assessed 04/18/23 04/18/23 10:43 Patient Tobacco Use Status Former Tobacco user 04/18/23 10:43 e-Cigarette/Vaping Use Never Used 04/18/23 10:43 Thrive Assessment: Date of Thrive Assessment Date Thrive assessed 11/15/22 04/18/23 10:43 Const General: no acute distress HENMT Ears: hearing grossly normal bilaterally Face and sinus: Yes normal facial exam Throat: Yes posterior oropharynx normal Neck Neck: Yes no lymphadenopathy and Yes supple Resp Effort & Inspection: normal respiratory effort Auscultation: clear to auscultation bilaterally Cardio Rhythm: regular rhythm Heart sounds: S1 normal heart sound present and S2 normal heart sound present GI Inspection: Yes normal to inspection Palpation (GI): Soft to palpation Percussion: Yes normal to percussion Auscultation: normal bowel sounds Assessment and Plan Assessment & Plan (1) Ex-smoker: Comment: quit 2012, 2 PPD x 40 yrs, screen CT NEGATIVE 2020 Code(s): Z87.891 - Personal history of nicotine dependence (2) Hypertension: Code(s): I10 - Essential (primary) hypertension Plan: cont Metoprolol (3) Hyperlipidemia: Code(s): E78.5 - Hyperlipidemia, unspecified Plan: cont Atorvastatin (4) COPD (chronic obstructive pulmonary disease): Code(s): J44.9 - Chronic obstructive pulmonary disease, unspecified Plan: cont Stiolto Orders: Orders Comprehensive [place]. Panel Fast 6 Months E78.5 - Hyperlipidemia, unspecified, I10 - Essential (primary) hypertension, J44.9 - Chronic obstructive pulmonary disease, unspecified Complete Blood Count Auto Diff 6 Months E78.5 - Hyperlipidemia, unspecified, I10 - Essential (primary) hypertension, J44.9 - Chronic obstructive pulmonary disea se, unspecified Hemoglobin A1c 6 Months E78.5 - Hyperlipidemia, unspecified, I10 - Essential (primary) hypertension, J44.9 - Chronic obstructive pulmonary disease, unspecifi ed Referrals Thoracic Surgery Referral Z87.891 - Personal history of nicotine dependence Medications: Refilled tiotropium-olodaterol 2.5-2.5 mcg/actuation (Stiolto Respimat) 2 puffs inhalation DAILY 4 grams 6RF paroxetine HCl 40 mg PO DAILY 90 tabs 3RF F41.9 - Anxiety disorder, unspecified Coding Level of Care Code Est Pt Level 4 (72504) Diagnoses Ex-smoker Z87.891 Hypertension I10 Hyperlipidemia E78.5 COPD (chronic obstructive pulmonary disease) J44.9
== END 2023-04-18 11:11 | disposition home or self-care (01) ==
PROVIDERS: Visit Provider Internal Medicine
DX: Z87.891 Personal history of nicotine dependence (principal); I10 Essential (primary) hypertension; E78.5 Hyperlipidemia, unspecified; J44.9 Chronic obstructive pulmonary disease, unspecified
CPT/HCPCS: 99214

== ENCOUNTER 2023-10-19 08:21 | Outpatient (AMB) | payer MEDICARE, MEDICAID, SELFPAY ==
[2023-10-19 08:22] VITALS: BP 140/76; PULSE 65; O2SAT 95; BMI 30.8
--- NOTE | 2023-10-19 08:22 | MHC.PC.OV ---
Vital Signs 10/19/23 08:22 Height 5 ft 5 in Weight 185 lb BMI 30.8 BP 140/76 H Blood Pressure Location Lt brachial Position Sitting Pulse 65 Pulse Source Pulse Oximeter Pulse Oximetry (%) 95 Oxygen Delivery Method Room Air Intake Visit Reasons: Annual PE 2nd ins covers Intake Note: Pt is here today for PE. Allergies No Known Allergies Allergy (Verified 10/19/23 08:25) Medication List - Last Reconciled 10/19/23 by Carla Reyes MD atorvastatin 10 mg PO DAILY diclofenac sodium 1% 2 grams topical QID metoprolol succinate ER 50 mg PO DAILY paroxetine HCl 40 mg PO DAILY tiotropium-olodaterol 2.5-2.5 mcg/actuation (Stiolto Respimat) 2 puffs inhalation DAILY triamcinolone acetonide 0.1% 1 appl topical BID Tobacco use date assessed: 10/19/23 Fall risk assessment: No Falls in past year Last assessed Fall Risk: 10/19/23 Dental Screening Dental Screen Date: 10/19/23 Did you have a dental visit in the last 12 months?: No Did you have a dental problem in the last 6 months where you did not have access to dental care?: No Was dental information given to patient?: Patient declined HPI Annual PE 2nd ins covers HPI Details Pt presents for PE. COUNT INCLUDES [facility] Medical History Annual physical exam Dupuytren's contracture of right hand Knee pain Sciatica Pes anserine bursitis COPD (chronic obstructive pulmonary disease) Ex-smoker Hyperlipidemia Eczema Chronic anxiety Surgical History H/O colonoscopy Family History Father No problems noted. Social History Housing: House Alcohol intake: never Patient Tobacco Use Status: Former Tobacco user e-Cigarette/Vaping Use: Never Used Second Hand Smoke Exposure: No service: No Current occupational status: retired Cognitive needs: No Hearing needs: No Vision needs: No Questionnaire PHQ-9 Over the last 2 weeks, how often have you been bothered by any of the following problems? 1. Little interest or pleasure in doing things: not at all 2. Feeling down, depressed, or hopeless: not at all 3. Trouble falling or staying asleep, or sleeping too much: not at all 4. Feeling tired or having little energy: not at all 5. Poor appetite or overeating: not at all 6. Feeling bad about yourself - or that you are a failure or have let yourself or your family down: not at all 7. Trouble concentrating on things, such as reading the newspaper or watching television: not at all 8. Moving or speaking so slowly that other people could have noticed. Or the opposite - being so fidgety or restless that you have been moving around a lot more than usual: not at all 9. Thoughts that you would be better off or of hurting yourself in some way: not at all Total score: 0 Depression Screening Interpretation: Negative Depression Screening Done: Yes Source: Developed by Drs. Matthew Parker, Miya Neri, David Abernathy and colleagues, with an educational nnamdi from [employer]. Thrive Questionnaire Date Thrive assessed: 10/19/23 I am a: Patient What is your living situation today?: I have a steady place to live Within the past 12 months, did the food you bought not last and you didn't have the money to get more?: Never true Within the past 12 months, did you worry whether your food would run out before you got money to buy more?: Never true Do you have trouble paying for medicines?: No Do you have trouble getting transportation to medical appointments?: No Do you have trouble paying your heating and electricity bill?: No Do you have trouble taking care of your child, family member or friend?: No Do you have trouble with day-to-day activities such as bathing, preparing meals, shopping, managing finances, etc.?: No Are you currently unemployed and looking for a job?: No Are you interested in more education?: No Please select the resources that you would like help with: None THRIVE Score: 0 AUDIT C Alcohol Use Questionnaire (AUDIT-C) 1. How often do you have a drink containing alcohol?: Never 3. How often do you have six or more drinks on one occasion?: Never Total Score: 0 CORRINA-7 AMB Questionnaire CORRINA-7 Date CORRINA - 7 assessed: 10/19/23 Feeling nervous, anxious, or on edge: 0 = Not at all Not being able to stop or control worryin = Not at all Worrying too much about different things: 0 = Not at all Trouble relaxin = Not at all Being so restless that it is hard to sit still: 0 = Not at all Becoming easily annoyed or irritable: 0 = Not at all Feeling afraid as if something awful might happen: 0 = Not at all Total CORRINA-7 score (0-4 normal; 5-9 mild; 10-14 moderate; 15-21 severe): 0 Source: Developed by Drs. Matthew Parker, Miya Neri, David Abernathy and colleagues, with an educational nnamdi from [employer]. Review of Systems Const All systems reviewed & are unremarkable except as noted in HPI and below Reports no additional complaints Eyes Reports no additional complaints ENT Reports no additional complaints Card Reports no additional complaints Resp Reports no additional complaints GI Reports no additional complaints Reports no additional complaints Physical exam (Primary Care) Vital Signs: Last Vital Signs Pulse 65 10/19/23 08:22 BP 140/76 H 10/19/23 08:22 Pulse Ox 95 10/19/23 08:22 Oxygen Delivery Method Room Air 10/19/23 08:22 BMI result Body Mass Index 30.8 Tobacco/Smoking Status: Tobacco use Status Tobacco use date assessed 10/19/23 10/19/23 08:29 Patient Tobacco Use Status Former Tobacco user 10/19/23 08:29 e-Cigarette/Vaping Use Never Used 10/19/23 08:29 PHQ-9: PHQ-9 Score PHQ-9: Total score 0 10/19/23 08:31 Depression Screening Interpretation: Negative Thrive Assessment: Date of Thrive Assessment Date Thrive assessed 10/19/23 10/19/23 08:31 Const General: no acute distress HENMT Head: Yes normal to inspection Ears: hearing grossly normal bilaterally General nose exam: Normal external nose present Face and sinus: Yes normal facial exam Mouth: Normal oral and palatal mucosa present Throat: Yes posterior oropharynx normal Eyes General: appearance normal, both eyes and all related structures Neck Neck: Yes no lymphadenopathy and Yes supple Resp Effort & Inspection: normal respiratory effort Auscultation: clear to auscultation bilaterally Cardio Rhythm: regular rhythm Heart sounds: S1 normal heart sound present and S2 normal heart sound present GI Inspection: Yes normal to inspection Palpation (GI): Soft to palpation Percussion: Yes normal to percussion Auscultation: normal bowel sounds Assessment and Plan Assessment & Plan (1) H/O colonoscopy: Comment: July 2015, repeat normal 03/16 Dr. Fajardo Code(s): Z98.890 - Other specified postprocedural states (2) Annual physical exam: Code(s): Z00.00 - Encounter for general adult medical examination without abnormal findings Plan: Well-balanced diet regular exercise discussed with the patient (3) Dupuytren's contracture of right hand: Comment: f/u with Dr. Macedo Code(s): M72.0 - Palmar fascial fibromatosis [Dupuytren] (4) Hypertension: Code(s): I10 - Essential (primary) hypertension Plan: Add 5 mg of lisinopril, follow-up in 1 month with comprehensive panel before Orders: Orders Comprehensive [place]. Panel Fast 1 Month I10 - Essential (primary) hypertension Referrals Hand Surgery Referral M72.0 - Palmar fascial fibromatosis [Dupuytren] Medications: New lisinopril 5 mg PO DAILY 90 tabs 0RF Discontinued tiotropium-olodaterol 2.5-2.5 mcg/actuation (Stiolto Respimat) Discontinued Reason: Doctor's Order 2 puffs inhalation DAILY 4 grams 6RF Coding Level of Care Code Est Pt Prev Care >65y(63503) Diagnoses H/O colonoscopy Z98.890 Annual physical exam Z00. Dupuytren's contracture of right hand M72.0 Hypertension I10
== END 2023-10-19 09:10 | disposition home or self-care (01) ==
PROVIDERS: PCP Internal Medicine; Visit Provider Internal Medicine
DX: Z00.00 Encounter for general adult medical examination without abnormal findings (principal); Z98.890 Other specified postprocedural states; M72.0 Palmar fascial fibromatosis [Dupuytren]; I10 Essential (primary) hypertension
CPT/HCPCS: 99397

== ENCOUNTER 2023-11-15 07:13 | Outpatient (REF) | payer MEDICARE, SELFPAY ==
[2023-11-15 12:03] LABS: Alanine Aminotransferase 22 U/L (0-40); Albumin Level 4.2 g/dL (3.5-5.0); Alkaline Phosphatase 81 U/L (39-117); Anion Gap 12 (12-20); Aspartate Amino Transferase 20 U/L (5-37); Bilirubin Total 1.4 mg/dL (0.0-1.0); Blood Urea Nitrogen 16 mg/dL (9-16); Calcium 9.3 mg/dL (8.4-10.2); Carbon Dioxide 28 mmol/L (22-29); Chloride 108 mmol/L (96-108); Estimated Glomerular Filt Rate > 60; Glucose Fasting 108 mg/dL (60-99); Potassium 4.3 mmol/L (3.3-5.1); Sodium 144 mmol/L (135-145); Total Protein 7.6 g/dL (6.5-8.0)
== END 2023-11-15 07:14 | disposition home or self-care (01) ==
LOC: HO.HMGCLDS 07:13
PROVIDERS: PCP Internal Medicine; Visit Provider Internal Medicine
DX: I10 Essential (primary) hypertension (principal)
CPT/HCPCS: 36415; 80053

== ENCOUNTER 2023-11-22 10:08 | Outpatient (AMB) | payer MEDICARE, SELFPAY ==
[2023-11-22 10:26] VITALS: BP 122/78; PULSE 74; O2SAT 96; BMI 30.6
--- NOTE | 2023-11-22 10:26 | A.OFFPC_ITS ---
Vital Signs 11/22/23 10:26 Height 5 ft 5 in Weight 184 lb BMI 30.6 BP 122/78 Blood Pressure Location Lt brachial Position Sitting Pulse 74 Pulse Source Pulse Oximeter Pulse Oximetry (%) 96 Oxygen Delivery Method Room Air Intake Visit Reasons: 1 month follow up Allergies No Known Allergies Allergy (Verified 11/22/23 10:26) Medication List - Last Reconciled 11/22/23 by Carla Reyes MD atorvastatin 10 mg PO DAILY diclofenac sodium 1% 2 grams topical QID lisinopril 5 mg PO DAILY metoprolol succinate ER 50 mg PO DAILY paroxetine HCl 40 mg PO DAILY triamcinolone acetonide 0.1% 1 appl topical BID umeclidinium-vilanterol 62.5-25 mcg/actuation (Anoro Ellipta) 1 inh inhalation DAILY Tobacco use date assessed: 10/19/23 HPI 1 month follow up HPI Details Patient presents for the follow-up on hypertension and hyperlipidemia controlled on current medications. He would like to restart inhaler for COPD because of occasionally wheezing and dry cough. Patient denies PND orthopnea or pleurisy, night sweat PFSH Medical History Annual physical exam Dupuytren's contracture of right hand Knee pain Sciatica Pes anserine bursitis COPD (chronic obstructive pulmonary disease) Ex-smoker Hyperlipidemia Eczema Chronic anxiety Surgical History H/O colonoscopy Family History Father No problems noted. Social History Housing: House Alcohol intake: never Patient Tobacco Use Status: Former Tobacco user e-Cigarette/Vaping Use: Never Used Second Hand Smoke Exposure: No service: No Current occupational status: retired Cognitive needs: No Hearing needs: No Vision needs: No Questionnaire Thrive Questionnaire Date Thrive assessed: 10/19/23 CORRINA-7 AMB Questionnaire CORRINA-7 Date CORRINA - 7 assessed: 10/19/23 Source: Developed by Drs. Matthew Parker, Miya Neri, David Abernathy and colleagues, with an educational nnamdi from [employer]. Review of Systems Const All systems reviewed & are unremarkable except as noted in HPI and below Reports no additional complaints Eyes Reports no additional complaints ENT Reports no additional complaints Card Reports no additional complaints Resp Reports no additional complaints GI Reports no additional complaints Physical exam (Primary Care) Vital Signs: Last Vital Signs Pulse 74 11/22/23 10:26 BP 122/78 11/22/23 10:26 Pulse Ox 96 11/22/23 10:26 Oxygen Delivery Method Room Air 11/22/23 10:26 BMI result Body Mass Index 30.6 Tobacco/Smoking Status: Tobacco use Status Tobacco use date assessed 10/19/23 11/22/23 10:27 Patient Tobacco Use Status Former Tobacco user 11/22/23 10:27 e-Cigarette/Vaping Use Never Used 11/22/23 10:27 Thrive Assessment: Date of Thrive Assessment Date Thrive assessed 10/19/23 11/22/23 10:27 Const General: no acute distress HENMT Head: Yes normal to inspection Ears: hearing grossly normal bilaterally Face and sinus: Yes normal facial exam Eyes General: appearance normal, both eyes and all related structures Neck Neck: Yes supple Resp Effort & Inspection: normal respiratory effort Auscultation: diminished lung sounds Cardio Rhythm: regular rhythm Heart sounds: S1 normal heart sound present and S2 normal heart sound present GI Inspection: Yes normal to inspection Assessment and Plan Assessment & Plan (1) Hypertension: Code(s): I10 - Essential (primary) hypertension Plan: Continue lisinopril and metoprolol (2) Hyperlipidemia: Code(s): E78.5 - Hyperlipidemia, unspecified Plan: Continue statin (3) COPD (chronic obstructive pulmonary disease): Code(s): J44.9 - Chronic obstructive pulmonary disease, unspecified Plan: Restart Anoro, follow-up in 3 months with a fasting labs before Orders: Orders Lipid Panel 3 Months E78.5 - Hyperlipidemia, unspecified, I10 - Essential (primary) hypertension, J44.9 - Chronic obstructive pulmonary disease, unspecified Comprehensive [place]. Panel Fast 3 Months E78.5 - Hyperlipidemia, unspecified, I10 - Essential (primary) hypertension, J44.9 - Chronic obstructive pulmonary disease, unspecified Complete Blood Count Auto Diff 3 Months E78.5 - Hyperlipidemia, unspecified, I10 - Essential (primary) hypertension, J44.9 - Chronic obstructive pulmonary disease, unspecified Medications: New umeclidinium-vilanterol 62.5-25 mcg/actuation (Anoro Ellipta) 1 inh inhalation DAILY 60 ea 3RF Coding Level of Care Code Est Pt Level 4 (41115) Diagnoses Hypertension I10 Hyperlipidemia E78.5 COPD (chronic obstructive pulmonary disease) J44.9
== END 2023-11-22 10:57 | disposition home or self-care (01) ==
LOC: HO.HMGC 10:09
PROVIDERS: PCP Internal Medicine; Visit Provider Internal Medicine
DX: I10 Essential (primary) hypertension (principal); E78.5 Hyperlipidemia, unspecified; J44.9 Chronic obstructive pulmonary disease, unspecified
CPT/HCPCS: 99214

== ENCOUNTER 2023-12-06 13:31 | Outpatient (AMB) | payer MEDICARE, SELFPAY ==
[2023-12-06 14:18] VITALS: BMI 30.6
--- NOTE | 2023-12-06 14:18 | MHC.OFFVIS ---
Intake Vital Signs 12/06/23 14:18 Height 5 ft 5 in Weight 184 lb BMI 30.6 Intake Visit Reasons: Newprob-benign nodular fibromatosis,B/L Hands Intake Note: Redd 73 yr old right hand dominant male presets today for a new problem visit for bilateral hand benign nodular fibromatosis, Denies numbness, tingling or pain. He has his daughter in law with him today. He reports 5 years ago he had surgery on his fifth digit on his right hand and now his 4th digit on his right hand and third digit on his left hand is having the same problem. Reviewed allergies and he could not remember his medication list today. Allergies No Known Allergies Allergy (Verified 12/06/23 14:23) HPI Newprob-benign nodular fibromatosis,B/L Hands HPI Details Redd is a 73 year old right hand dominant Zambian speaking man, here with his [id number], with complaints of bilateral hand contractures. He complains of contractures affecting his right ring finger & left middle fingers. He says this has been present for some time now. He denies any numbness, tingling, or pain. He says he has a hx of a right small finger partial fasciectomy done in ~2019. [facility] Medical History (Updated 12/06/23 @ 14:42 by Lazaro Lucas) Annual physical exam Dupuytren's contracture of right hand Knee pain Sciatica Pes anserine bursitis COPD (chronic obstructive pulmonary disease) Ex-smoker Hyperlipidemia Eczema Chronic anxiety Surgical History H/O colonoscopy Family History Father No problems noted. Social History Housing: House Alcohol intake: never Patient Tobacco Use Status: Former Tobacco user e-Cigarette/Vaping Use: Never Used Second Hand Smoke Exposure: No service: No Current occupational status: retired Cognitive needs: No Hearing needs: No Vision needs: No Review of Systems Const All systems reviewed & are unremarkable except as noted in HPI and below Physical Exam Vital Signs: BMI result Body Mass Index 30.6 Const General: cooperative, healthy appearing and no acute distress Orientation/consciousness: patient oriented x3 HEENT Head: Yes normocephalic and Yes atraumatic Eyes EOM: EOMs intact bilaterally Resp Effort & Inspection: normal respiratory effort and able to speak in complete sentences Cardio Jugular venous distension: no JVD Skin General skin exam: turgor normal Rashes: no rashes Neuro General: patient oriented x3 Extrem Other: Evaluation of Bilateral Upper Extremity: The patient is alert, oriented, and in no acute distress Neuro: Median, Ulnar, Radial nerves motor and sensory intact Vascular: Cap refill brisk ROM: He has a Dupuytrens contracture of the right ring finger MCP 90/PIP 10 His right small finger MCP 45/PIP 0, as the ring finger Dupuytrens cord appears to be extending to his small finger and pulling it into flexion There is a thick central cord extending from the mid palmar area out to the middle phalanx of the right ring finger. He has a Dupuytrens contracture of the left middle finger MCP 25/PIP 10 He can bring all his fingers closed to a fist bilaterally Skin: No lacerations or abrasions. General: No Ecchymosis. No Erythema or evidence of infection. Psych Appearance: grossly normal Affect: normal affect Attitude: cooperative Assessment & Plan Assessment & Plan (1) Dupuytren's contracture of right hand: Code(s): M72.0 - Palmar fascial fibromatosis [Dupuytren] (2) Dupuytren's contracture of left hand: Code(s): M72.0 - Palmar fascial fibromatosis [Dupuytren] Plan Assessment & Plan: 1. Right ring finger Dupuytrens contracture MCP 90/PIP 10 2. Right small finger Dupuytrens contracture S/P partial fasciectomy, DOS: ~2019, by Dr. Macedo MCP 45/PIP 0 There appears to be a Dupuytrens cord extending from the ring finger and holding the small finger into partial flexion 3. Left middle finger Dupuytrens contracture MCP 25/PIP 10 I educated him and his [id number] about this condition I discussed operative and non-operative treatment options The patient would like to proceed with surgery, but not until later this year. He is thinking sometime in July would be a good time for surgery so he can remain active during the summer months, particularly gardening I did talk to him about possibly having a smaller procedure under local anesthesia in the mid palm verses going under general anesthesia to have a more thorough partial fasciectomy. Of these things, he very much wants to wait on doing this until the fall, and then would prefer to go to sleep and have me perform the more definitive procedure. He will follow up sometime in May to discuss treatment options. Scribed for Christine Monroe MD by Lazaro Lucas, medical equipment repair technician, on 12/06/23 at 2:45 PM, EST. Coding Level of Care Code New Pt Level 4 (51872) Diagnoses Dupuytren's contracture of right hand M72.0 Dupuytren's contracture of left hand M72.0
== END 2023-12-06 14:48 | disposition home or self-care (01) ==
PROVIDERS: PCP Internal Medicine; Visit Provider Orthopaedic Surgery
DX: M72.0 Palmar fascial fibromatosis [Dupuytren] (principal)
CPT/HCPCS: 99204

== ENCOUNTER → 2023-12-06 13:31 | Outpatient (BNVA) | payer MEDICARE, SELFPAY | PROVIDERS: PCP Internal Medicine; Visit Provider Orthopaedic Surgery | DX: M72.0 Palmar fascial fibromatosis [Dupuytren] (principal) | CPT/HCPCS: 99202 ==

== ENCOUNTER 2024-02-16 06:50 | Outpatient (REF) | payer MEDICARE, SELFPAY ==
[2024-02-16 10:19] LABS: MANUAL DIFF FLAG NO
[2024-02-16 10:34] LABS: Basophils Percent Auto 0.5 % (0-2); Eosinophils Absolute Auto 0.2 X10*3/uL (0.0-0.4); Eosinophils Percent Auto 4.4 % (0-4); Hematocrit 48.8 % (42.0-52.0); Hemoglobin 16.2 g/dl (14.0-18.0); Imm Gran Abs Auto 0.02 X10*3/uL (0.00-0.03); Imm Gran Pct Auto 0.4 % (0.0-0.4); Lymphocytes Absolute Auto 1.1 X10*3/uL (1.2-4.9); Lymphocytes Percent Auto 19.6 % (20-40); Mean Corpuscular HGB Conc 33.2 g/dl (31.0-36.0); Mean Corpuscular Hemoglobin 30.6 pg (27.0-33.0); Mean Corpuscular Volume 92.2 fL (80.0-98.0); Mean Platelet Volume 11.5 fL (9.4-12.4); Monocytes Absolute Auto 0.6 X10*3/uL (0.1-1.2); Monocytes Percent Auto 11.4 % (2-11); Neutrophils Absolute Auto 3.5 x10*3/uL (2.0-8.3); Neutrophils Percent Auto 63.7 % (45-73); Platelet Count 160 X10*3/uL (160-400); Red Blood Count 5.29 X10*6/uL (4.60-5.80); Red Cell Distribution Width 13.3 % (11.0-16.0); White Blood Count 5.5 X10*3/uL (4.8-10.8)
[2024-02-16 10:41] LABS: Estimated Average Glucose 120 mg/dL; Hemoglobin A1c % 5.8 % (<6.0)
[2024-02-16 10:56] LABS: Alanine Aminotransferase 17 U/L (0-40); Alkaline Phosphatase 74 U/L (39-117); Anion Gap 12 (12-20); Aspartate Amino Transferase 21 U/L (5-37); Bilirubin Total 1.7 mg/dL (0.0-1.0); Blood Urea Nitrogen 17 mg/dL (9-16); Calcium 9.4 mg/dL (8.4-10.2); Carbon Dioxide 23 mmol/L (22-29); Chloride 109 mmol/L (96-108); Cholesterol 164 mg/dL (<200); Estimated Glomerular Filt Rate > 60; Glucose Fasting 115 mg/dL (60-99); HDL Cholesterol 45 mg/dL (>40); LDL Cholesterol Calculated 106 mg/dL (<100); Potassium 4.1 mmol/L (3.3-5.1); Sodium 140 mmol/L (135-145); Total Protein 7.1 g/dL (6.5-8.0); Triglycerides 69 mg/dL (<150)
== END 2024-02-16 06:51 | disposition home or self-care (01) ==
LOC: HO.HMGCLDS 06:50
PROVIDERS: PCP Internal Medicine; Visit Provider Internal Medicine
DX: E78.5 Hyperlipidemia, unspecified (principal); I10 Essential (primary) hypertension; J44.9 Chronic obstructive pulmonary disease, unspecified
CPT/HCPCS: 36415; 80053; 80061; 83036; 85025

== ENCOUNTER 2024-02-20 09:16 | Outpatient (AMB) | payer MEDICARE, SELFPAY ==
[2024-02-20 09:24] VITALS: BP 126/64; PULSE 65; O2SAT 95; BMI 30.3
--- NOTE | 2024-02-20 09:24 | A.OFFPC_ITS ---
Vital Signs 02/20/24 09:24 Height 5 ft 5 in Weight 182 lb BMI 30.3 BP 126/64 Blood Pressure Location Lt brachial Position Sitting Pulse 65 Pulse Source Pulse Oximeter Pulse Oximetry (%) 95 Oxygen Delivery Method Room Air Intake Visit Reasons: 3 month follow up Intake Note: Pt is here today for 3 months follow up visit. Allergies No Known Allergies Allergy (Verified 02/20/24 09:35) Medication List - Last Reconciled 02/20/24 by Carla Reyes MD atorvastatin 10 mg PO DAILY diclofenac sodium 1% 2 grams topical QID lisinopril 5 mg PO DAILY metoprolol succinate ER 50 mg PO DAILY paroxetine HCl 40 mg PO DAILY triamcinolone acetonide 0.1% 1 appl topical BID umeclidinium-vilanterol 62.5-25 mcg/actuation (Anoro Ellipta) 1 inh inhalation DAILY Tobacco use date assessed: 02/20/24 Dental Screening Dental Screen Date: 10/19/23 HPI 3 month follow up HPI Details Pt presents for f/u HTN, hyperlipid, COPD, stable on medications [facility] Medical History (Updated 12/06/23 @ 14:42 by Lazaro Lucas) Annual physical exam Dupuytren's contracture of right hand Knee pain Sciatica Pes anserine bursitis COPD (chronic obstructive pulmonary disease) Ex-smoker Hyperlipidemia Eczema Chronic anxiety Surgical History H/O colonoscopy Family History Father No problems noted. Social History Housing: House Alcohol intake: never Patient Tobacco Use Status: Former Tobacco user e-Cigarette/Vaping Use: Never Used Second Hand Smoke Exposure: No service: No Current occupational status: retired Cognitive needs: No Hearing needs: No Vision needs: No Questionnaire Thrive Questionnaire Date Thrive assessed: 10/19/23 CORRINA-7 AMB Questionnaire CORRINA-7 Date CORRINA - 7 assessed: 10/19/23 Source: Developed by Drs. Matthew Parker, Miya Neri, David Abernathy and colleagues, with an educational nnamdi from [employer]. Review of Systems Const All systems reviewed & are unremarkable except as noted in HPI and below ENT Reports no additional complaints Card Reports no additional complaints Resp Reports no additional complaints GI Reports no additional complaints Physical exam (Primary Care) Vital Signs: Last Vital Signs Pulse 65 02/20/24 09:24 BP 126/64 02/20/24 09:24 Pulse Ox 95 02/20/24 09:24 Oxygen Delivery Method Room Air 02/20/24 09:24 BMI result Body Mass Index 30.3 Tobacco/Smoking Status: Tobacco use Status Tobacco use date assessed 02/20/24 02/20/24 09:38 Patient Tobacco Use Status Former Tobacco user 02/20/24 09:24 e-Cigarette/Vaping Use Never Used 02/20/24 09:24 Thrive Assessment: Date of Thrive Assessment Date Thrive assessed 10/19/23 02/20/24 09:24 Const General: no acute distress HENMT Face and sinus: Yes normal facial exam Eyes General: appearance normal, both eyes and all related structures Neck Neck: Yes no lymphadenopathy and Yes supple Resp Effort & Inspection: normal respiratory effort Auscultation: clear to auscultation bilaterally Cardio Rhythm: regular rhythm Heart sounds: S1 normal heart sound present and S2 normal heart sound present GI Inspection: Yes normal to inspection Assessment and Plan Assessment & Plan (1) Hyperlipidemia: Code(s): E78.5 - Hyperlipidemia, unspecified Plan: Continue statin (2) COPD (chronic obstructive pulmonary disease): Code(s): J44.9 - Chronic obstructive pulmonary disease, unspecified Plan: Continue Anoro (3) Hypertension: Code(s): I10 - Essential (primary) hypertension Plan: Continue current medications Orders: Orders Comprehensive [place]. Panel Fast 4 Months E78.5 - Hyperlipidemia, unspecified, I10 - Essential (primary) hypertension, J44.9 - Chronic obstructive pulmonary disease, unspecified Lipid Panel 4 Months E78.5 - Hyperlipidemia, unspecified, I10 - Essential (primary) hypertension, J44.9 - Chronic obstructive pulmonary disease, unspecified Hemoglobin A1c 4 Months E78.5 - Hyperlipidemia, unspecified, I10 - Essential (primary) hypertension, J44.9 - Chronic obstructive pulmonary disease, unspecified Coding Level of Care Code Est Pt Level 4 (44480) Diagnoses Hyperlipidemia E78.5 COPD (chronic obstructive pulmonary disease) J44.9 Hypertension I10
== END 2024-02-20 10:14 | disposition home or self-care (01) ==
PROVIDERS: PCP Internal Medicine; Visit Provider Internal Medicine
DX: E78.5 Hyperlipidemia, unspecified (principal); J44.9 Chronic obstructive pulmonary disease, unspecified; I10 Essential (primary) hypertension
CPT/HCPCS: 99214

== ENCOUNTER 2024-06-04 08:10 | Outpatient (AMB) | payer MEDICARE, SELFPAY ==
[2024-06-04 08:28] VITALS: BMI 30.3
--- NOTE | 2024-06-04 08:28 | MHC.OFFVIS ---
Vital Signs 06/04/24 08:28 Height 5 ft 5 in Weight 182 lb BMI 30.3 Intake Visit Reasons: OV - Right Hand Dupuytrens Contracture Intake Note: Redd 73 year old right hand dominant male presets today to discuss surgical treatment for right hand Dupuytrens Contracture. Patient reports no concerns today. Consent signed in office today. Allergies No Known Allergies Allergy (Verified 06/04/24 08:28) HPI HPI OV - Right Hand Dupuytrens Contracture: Details: Redd is a 74 year old right hand dominant Angolan speaking man, here with his homeabms-wj-ldf, to discuss treatment for his right hand Dupuytrens contractures He continues to be somewhat limited in his daily activities by his right hand contractures. He says this has been present for some time now. Now that summer is over he would like to discuss surgery. He has some mild numbness to the ulnar side of his small finger, and normal sensation to the rest of his hand. He also complains of some mild pain at the base of his thumbs, worse with overuse or gripping activities. He says he has a hx of a right small finger partial fasciectomy done in ~[address] Macedo. He has contractures of the right ring & small fingers, as well as the left middle finger [facility] Medical History (Updated 12/06/23 @ 14:42 by Lazaro Lucas) Annual physical exam Dupuytren's contracture of right hand Knee pain Sciatica Pes anserine bursitis COPD (chronic obstructive pulmonary disease) Ex-smoker Hyperlipidemia Eczema Chronic anxiety Surgical History H/O colonoscopy Family History Father No problems noted. Social History Housing: House Alcohol intake: never Patient Tobacco Use Status: Former Tobacco user e-Cigarette/Vaping Use: Never Used Second Hand Smoke Exposure: No service: No Current occupational status: retired Cognitive needs: No Hearing needs: No Vision needs: No Review of Systems Const All systems reviewed & are unremarkable except as noted in HPI and below Physical Exam Vital Signs: BMI result Body Mass Index 30.3 Const General: no acute distress and alert Orientation/consciousness: patient oriented x3 Neuro General: patient oriented x3 Extrem Other: Evaluation of Bilateral Upper Extremity: The patient is alert, oriented, and in no acute distress Neuro: Some decreased subjective sensation to the small finger ulnar digital nerve distribution. Normal sensation to all other digits of the right hand Vascular: Cap refill brisk ROM: He has a Dupuytrens contracture of the right ring finger MCP 90/PIP 10 There is a thick central cord extending from the mid palmar area out to the middle phalanx of the right ring finger. His right small finger MCP 45/PIP 30, as there appears to be an extension from the central cord to the ring finger across the 4th webspace to the small finger, which is pulling it into flexion. There is a healed scar from his previous Dupuytren's release to the small finger in 2019. He has a Dupuytrens contracture of the left middle finger MCP 25/PIP 10 He can bring all his fingers closed to a fist bilaterally Pos Shoulder sign on the right Psych Appearance: grossly normal Affect: normal affect Attitude: cooperative Assessment & Plan Assessment & Plan (1) Dupuytren's contracture of right hand: Code(s): M72.0 - Palmar fascial fibromatosis [Dupuytren] Category: Medical (2) Dupuytren's contracture of left hand: Code(s): M72.0 - Palmar fascial fibromatosis [Dupuytren] Category: Medical (3) COPD (chronic obstructive pulmonary disease): Code(s): J44.9 - Chronic obstructive pulmonary disease, unspecified Category: Medical Plan Assessment & Plan: 1. Right ring finger Dupuytrens contracture MCP 90/PIP 10 2. Right small finger Dupuytrens contracture MCP 45/PIP 30 S/P partial fasciectomy, DOS: ~2019, by Dr. Macedo There appears to be a new Dupuytrens cord extending from the ring finger, passing through the webspace, and holding the small finger into partial flexion. This has worsened since his last appointment I educated him and his oojqzudd-lt-jvm about this condition. His gdgkexrh-ku-oyz was acting as a Angolan outfitter cabin. I discussed operative and non operative reatment options The patient would like to proceed with surgery, beginning with his right hand. I did talk to him about possibly having a smaller procedure under local anesthesia in the mid palm verses going under general anesthesia to have a more thorough partial fasciectomy. Of these things, he would prefer to go to sleep and have me perform the more definitive procedure. The risks and benefits of operative treatment were discussed with the patient and the patient wishes to proceed with surgery. These risks include, but are not limited to risk of damage to blood vessels, nerves, tendons, infection, recurrence, incomplete relief of preoperative symptoms, persistent pain, possible need for further surgery and the risks associated with regional blocks and anesthesia. The plan is to take the patient to the operating room sometime in the next few months for the following procedures: 1. Right ring finger partial Dupuytrens fasciectomy, under general 2. Right small finger REPEAT partial Dupuytrens fasciectomy, under general All of the preoperative paperwork including the consent was reviewed today. All the patient's questions were answered. The patient understands that they will be contacted by our spares scheduler soon to schedule this procedure. He would like this done sometime in August if possible. He denies Diabetes, blood thinners, asthma, heart, kidney issues He has COPD , we can ask anesthesia preop if they would require a pulmonary consult. 3. Left middle finger Dupuytrens contracture MCP 25/PIP 10 It will be it see what this is like after we have the correction of the ring finger. We can discuss treatment options at a later appointment 4. 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 Coding Level of Care Code Est Pt Level 4 (62267) Diagnoses Dupuytren's contracture of right hand M72.0 Dupuytren's contracture of left hand M72.0 COPD (chronic obstructive pulmonary disease) J44.9
== END 2024-06-04 09:28 | disposition home or self-care (01) ==
PROVIDERS: PCP Internal Medicine; Visit Provider Orthopaedic Surgery
DX: M72.0 Palmar fascial fibromatosis [Dupuytren] (principal); J44.9 Chronic obstructive pulmonary disease, unspecified
CPT/HCPCS: 99214

== ENCOUNTER → 2024-06-04 08:10 | Outpatient (BNVA) | payer MEDICARE, SELFPAY | PROVIDERS: PCP Internal Medicine; Visit Provider Orthopaedic Surgery | DX: M72.0 Palmar fascial fibromatosis [Dupuytren] (principal); J44.9 Chronic obstructive pulmonary disease, unspecified | CPT/HCPCS: 99212 ==

== ENCOUNTER 2024-06-12 07:26 | Outpatient (REF) | payer MEDICARE, SELFPAY ==
[2024-06-12 10:59] LABS: Alanine Aminotransferase 19 U/L (0-40); Alkaline Phosphatase 77 U/L (39-117); Anion Gap 8 (12-20); Aspartate Amino Transferase 20 U/L (5-37); Bilirubin Total 1.5 mg/dL (0.0-1.0); Blood Urea Nitrogen 16 mg/dL (9-16); Calcium 9.3 mg/dL (8.4-10.2); Carbon Dioxide 28 mmol/L (22-29); Chloride 109 mmol/L (96-108); Cholesterol 166 mg/dL (<200); Estimated Glomerular Filt Rate > 60; Glucose Fasting 110 mg/dL (60-99); HDL Cholesterol 44 mg/dL (>40); LDL Cholesterol Calculated 109 mg/dL (<100); Potassium 4.2 mmol/L (3.3-5.1); Sodium 141 mmol/L (135-145); Total Protein 7.3 g/dL (6.5-8.0); Triglycerides 69 mg/dL (<150)
[2024-06-12 11:24] LABS: Estimated Average Glucose 120 mg/dL; Hemoglobin A1c % 5.8 % (<6.0)
== END 2024-06-12 07:27 | disposition home or self-care (01) ==
LOC: HO.HMGCLDS 07:26
PROVIDERS: PCP Internal Medicine; Visit Provider Internal Medicine
DX: J44.9 Chronic obstructive pulmonary disease, unspecified (principal); I10 Essential (primary) hypertension; E78.5 Hyperlipidemia, unspecified; Z13.1 Encounter for screening for diabetes mellitus
CPT/HCPCS: 36415; 80053; 80061; 83036

== ENCOUNTER 2024-06-20 09:18 | Outpatient (AMB) | payer MEDICARE, SELFPAY ==
[2024-06-20 09:19] VITALS: BP 124/68; PULSE 70; O2SAT 97; BMI 30.9
--- NOTE | 2024-06-20 09:19 | MHC.PC.OV ---
Vital Signs 06/20/24 09:19 Height 5 ft 5 in Weight 186 lb BMI 30.9 BP 124/68 Blood Pressure Location Lt brachial Position Sitting Pulse 70 Pulse Source Pulse Oximeter Pulse Oximetry (%) 97 Oxygen Delivery Method Room Air Intake Visit Reasons: 4 month follow up Intake Note: Pt is here today for 4 months follow up visit. Pt needs a refill on Diclofenac gel. Allergies No Known Allergies Allergy (Verified 06/20/24 09:28) Medication List - Last Reconciled 06/20/24 by Carla Reyes MD atorvastatin 10 mg PO DAILY diclofenac sodium 1% 2 grams topical QID lisinopril 5 mg PO DAILY metoprolol succinate ER 50 mg PO DAILY paroxetine HCl 40 mg PO DAILY triamcinolone acetonide 0.1% 1 appl topical BID umeclidinium-vilanterol 62.5-25 mcg/actuation (Anoro Ellipta) 1 inh inhalation DAILY Tobacco use date assessed: 06/20/24 Fall risk assessment: No Falls in past year Last assessed Fall Risk: 06/20/24 Dental Screening Dental Screen Date: 06/20/24 Did you have a dental visit in the last 12 months?: No Did you have a dental problem in the last 6 months where you did not have access to dental care?: No Was dental information given to patient?: Patient declined HPI 4 month follow up HPI Details Pt presents for f/u HTN, hyperlipid, COPD. [facility] Medical History Annual physical exam Dupuytren's contracture of right hand Knee pain Sciatica Pes anserine bursitis COPD (chronic obstructive pulmonary disease) Ex-smoker Hyperlipidemia Eczema Chronic anxiety Surgical History H/O colonoscopy Family History Father No problems noted. Social History Housing: House Alcohol intake: never Patient Tobacco Use Status: Former Tobacco user e-Cigarette/Vaping Use: Never Used Second Hand Smoke Exposure: No service: No Current occupational status: retired Cognitive needs: No Hearing needs: No Vision needs: No Questionnaire PHQ-9 Over the last 2 weeks, how often have you been bothered by any of the following problems? 1. Little interest or pleasure in doing things: not at all 2. Feeling down, depressed, or hopeless: not at all 3. Trouble falling or staying asleep, or sleeping too much: not at all 4. Feeling tired or having little energy: not at all 5. Poor appetite or overeating: not at all 6. Feeling bad about yourself - or that you are a failure or have let yourself or your family down: not at all 7. Trouble concentrating on things, such as reading the newspaper or watching television: not at all 8. Moving or speaking so slowly that other people could have noticed. Or the opposite - being so fidgety or restless that you have been moving around a lot more than usual: not at all 9. Thoughts that you would be better off or of hurting yourself in some way: not at all Total score: 0 Depression Screening Interpretation: Negative Depression Screening Done: Yes 31148 - PHQ-9 Billing: Yes Source: Developed by Drs. Matthew Praker, Miya Neri, David Abernathy and colleagues, with an educational nnamdi from [employer]. Thrive Questionnaire Date Thrive assessed: 06/20/24 I am a: Patient What is your living situation today?: I choose not to answer this question Within the past 12 months, did the food you bought not last and you didn't have the money to get more?: I choose not to answer this question Within the past 12 months, did you worry whether your food would run out before you got money to buy more?: I choose not to answer this question Do you have trouble paying for medicines?: I choose not to answer this question Do you have trouble getting transportation to medical appointments?: I choose not to answer this question Do you have trouble paying your heating and electricity bill?: I choose not to answer this question Do you have trouble taking care of your child, family member or friend?: I choose not to answer this question Do you have trouble with day-to-day activities such as bathing, preparing meals, shopping, managing finances, etc.?: I choose not to answer this question Are you currently unemployed and looking for a job?: I choose not to answer this question Are you interested in more education?: I choose not to answer this question Please select the resources that you would like help with: None Currently or been in a relationship where the following occur: I choose not to answer THRIVE Score: 0 AUDIT C Alcohol Use Questionnaire (AUDIT-C) 1. How often do you have a drink containing alcohol?: Never Total Score: 0 CORRINA-7 AMB Questionnaire CORRINA-7 Date CORRINA - 7 assessed: 06/20/24 Feeling nervous, anxious, or on edge: 0 = Not at all Not being able to stop or control worryin = Not at all Worrying too much about different things: 0 = Not at all Trouble relaxin = Not at all Being so restless that it is hard to sit still: 0 = Not at all Becoming easily annoyed or irritable: 0 = Not at all Feeling afraid as if something awful might happen: 0 = Not at all Total CORRINA-7 score (0-4 normal; 5-9 mild; 10-14 moderate; 15-21 severe): 0 Source: Developed by Drs. Matthew Parker, Miya Neri, David Abernathy and colleagues, with an educational nnamdi from [employer]. CORRINA-7 Assessment Billing CORRINA-7 Assessment Tool: CORRINA-7 Assessment 08754 Review of Systems Const All systems reviewed & are unremarkable except as noted in HPI and below Eyes Reports no additional complaints ENT Reports no additional complaints Card Reports no additional complaints GI Reports no additional complaints Reports no additional complaints Physical exam (Primary Care) Vital Signs: Last Vital Signs Pulse 70 06/20/24 09:19 BP 124/68 06/20/24 09:19 Pulse Ox 97 06/20/24 09:19 Oxygen Delivery Method Room Air 06/20/24 09:19 BMI result Body Mass Index 30.9 Tobacco/Smoking Status: Tobacco use Status Tobacco use date assessed 06/20/24 06/20/24 09:32 Patient Tobacco Use Status Former Tobacco user 06/20/24 09:19 e-Cigarette/Vaping Use Never Used 06/20/24 09:19 PHQ-9: PHQ-9 Score PHQ-9: Total score 0 06/20/24 09:50 Depression Screening Interpretation: Negative Thrive Assessment: Date of Thrive Assessment Date Thrive assessed 06/20/24 06/20/24 09:32 Currently or been in a relationship where the following occur: I choose not to answer Const General: no acute distress HENMT Head: Yes normal to inspection Face and sinus: Yes normal facial exam Resp Effort & Inspection: normal respiratory effort Auscultation: clear to auscultation bilaterally Cardio Rhythm: regular rhythm Heart sounds: S1 normal heart sound present and S2 normal heart sound present GI Inspection: Yes normal to inspection Palpation (GI): Soft to palpation Percussion: Yes normal to percussion Auscultation: normal bowel sounds Assessment and Plan Assessment & Plan (1) Hypertension: Code(s): I10 - Essential (primary) hypertension Plan: Continue current medications (2) COPD (chronic obstructive pulmonary disease): Code(s): J44.9 - Chronic obstructive pulmonary disease, unspecified Plan: Continue Anoro (3) Hyperlipidemia: Code(s): E78.5 - Hyperlipidemia, unspecified Plan: Continue atorvastatin (4) Hyperglycemia: Code(s): R73.9 - Hyperglycemia, unspecified Plan: A1c is 5.8, continue ADA diet increase exercise weight loss discussed with the patient return in October with a fasting labs before (5) Annual physical exam: Code(s): Z00.00 - Encounter for general adult medical examination without abnormal findings Orders: Orders Comprehensive [place]. Panel Fast 5 Months E78.5 - Hyperlipidemia, unspecified, I10 - Essential (primary) hypertension, J44.9 - Chronic obstructive pulmonary disease, unspecified, R73.9 - Hyperglycemia, unspecified UA w Microscopic 5 Months E78.5 - Hyperlipidemia, unspecified, I10 - Essential (primary) hypertension, J44.9 - Chronic obstructive pulmonary disease, unspecified, R73.9 - Hyperglycemia, unspecified PSA,Total (Free>4and<10) 5 Months Z00.00 - Encounter for general adult medical examination without abnormal findings Complete Blood Count Auto Diff 5 Months E78.5 - Hyperlipidemia, unspecified, I10 - Essential (primary) hypertension, J44.9 - Chronic obstructive pulmonary disease, unspecified, R73.9 - Hyperglycemia, unspecified Lipid Panel 5 Months E78.5 - Hyperlipidemia, unspecified, I10 - Essential (primary) hypertension, J44.9 - Chronic obstructive pulmonary disease, unspecified, R73.9 - Hyperglycemia, unspecified Hemoglobin A1c 5 Months E78.5 - Hyperlipidemia, unspecified, I10 - Essential (primary) hypertension, J44.9 - Chronic obstructive pulmonary disease, unspecified, R73.9 - Hyperglycemia, unspecified Medications: Refilled diclofenac sodium 1% apply to single elbow, wrist or hand; for hand includes palm/fingers/back of hand 2 grams topical QID 100 grams 4RF Coding Level of Care Code Est Pt Level 4 (77666) Diagnoses Hypertension I10 COPD (chronic obstructive pulmonary disease) J44.9 Hyperlipidemia E78.5 Hyperglycemia R73.9 Annual physical exam Z00.00 Additional Codes CORRINA-7 Assessment Billing - CORRINA-7 Assessment Tool: CORRINA-7 Assessment [id number] ([id number])
== END 2024-06-20 10:11 | disposition home or self-care (01) ==
PROVIDERS: PCP Internal Medicine; Visit Provider Internal Medicine
DX: I10 Essential (primary) hypertension (principal); J44.9 Chronic obstructive pulmonary disease, unspecified; E78.5 Hyperlipidemia, unspecified; R73.9 Hyperglycemia, unspecified; Z00.00 Encounter for general adult medical examination without abnormal findings

== ENCOUNTER → 2024-06-20 09:18 | Outpatient (BNVA) | payer MEDICARE, SELFPAY | PROVIDERS: PCP Internal Medicine; Visit Provider Internal Medicine | DX: I10 Essential (primary) hypertension (principal); J44.9 Chronic obstructive pulmonary disease, unspecified; R73.9 Hyperglycemia, unspecified; E78.5 Hyperlipidemia, unspecified | CPT/HCPCS: 96127; 99212 ==

== ENCOUNTER 2024-08-20 08:54 | Outpatient (AMB) | payer MEDICARE, SELFPAY ==
--- NOTE | 2024-08-20 09:02 | MHC.OFFVIS ---
Intake Visit Reasons: Pre-Rt RF&SF Dupuytrens 08/29/24 Intake Note: Redd is a 74 yo right hand dominant male who presents today pre-operatively for scheduled for right ring finger and small finger Dupuytrens contracture on 08/29/[address] Monroe. Consents reviewed and signed in office today. Allergies No Known Allergies Allergy (Verified 08/20/24 09:15) HPI HPI Pre-Rt RF&SF Dupuytrens 08/29/24: Details: Redd is a 74 year old right hand dominant Turkmen speaking man, here with his kuywehcy-cr-noe, to discuss treatment for his right hand Dupuytrens contractures He continues to be somewhat limited in his daily activities by his right hand contractures. He says this has been present for some time now. Now that summer is over he would like to discuss surgery. He has some mild numbness to the ulnar side of his small finger, and normal sensation to the rest of his hand. He also complains of some mild pain at the base of his thumbs, worse with overuse or gripping activities. He says he has a hx of a right small finger partial fasciectomy done in ~[address] Macedo. He has contractures of the right ring & small fingers, as well as the left middle finger [facility] Medical History (Updated 08/16/24 @ 10:57 by Charo Spring RN) Dupuytren's contracture of right hand Knee pain Sciatica Pes anserine bursitis COPD (chronic obstructive pulmonary disease) Ex-smoker Hyperlipidemia Eczema Chronic anxiety Surgical History (Updated 08/16/24 @ 11:02 by Charo Spring RN) Hx of hand surgery Hx of arthroscopic knee surgery H/O colonoscopy Family History Father No problems noted. Social History (Updated 08/15/24 @ 15:35 by JAMAICA Amezquita) Housing: House Are you a primary inpatient care manager rn to a significant other at home: No Do you presently have visiting nurse or other home services: No Alcohol intake: never Patient Tobacco Use Status: Former Tobacco user Tobacco use type: Cigarette e-Cigarette/Vaping Use: Never Used Second Hand Smoke Exposure: No service: No Current occupational status: retired Current occupation: rt handed Cognitive needs: No Hearing needs: No Vision needs: No Physical Exam Const General: no acute distress and alert Orientation/consciousness: patient oriented x3 Neuro General: patient oriented x3 Extrem Other: Evaluation of Bilateral Upper Extremity: The patient is alert, oriented, and in no acute distress Neuro: Some decreased subjective sensation to the small finger ulnar digital nerve distribution. Normal sensation to all other digits of the right hand Vascular: Cap refill brisk ROM: He has a Dupuytrens contracture of the right ring finger MCP 90/PIP 10 There is a thick central cord extending from the mid palmar area out to the middle phalanx of the right ring finger. His right small finger MCP 45/PIP 30, as there appears to be an extension from the central cord to the ring finger across the 4th webspace to the small finger, which is pulling it into flexion. There is a healed scar from his previous Dupuytren's release to the small finger in 2019. He has a Dupuytrens contracture of the left middle finger MCP 25/PIP 10 He can bring all his fingers closed to a fist bilaterally Pos Shoulder sign on the right Psych Appearance: grossly normal Affect: normal affect Attitude: cooperative Assessment & Plan Assessment & Plan (1) Dupuytren's contracture of right hand: Code(s): M72.0 - Palmar fascial fibromatosis [Dupuytren] Category: Medical (2) Dupuytren's contracture of left hand: Code(s): M72.0 - Palmar fascial fibromatosis [Dupuytren] Category: Medical (3) COPD (chronic obstructive pulmonary disease): Code(s): J44.9 - Chronic obstructive pulmonary disease, unspecified Category: Medical Plan Assessment & Plan: 1. Right ring finger Dupuytrens contracture MCP 90/PIP 10 2. Right small finger Dupuytrens contracture MCP 45/PIP 30 S/P partial fasciectomy, DOS: ~2019, by Dr. Macedo I educated him and his janyxzaf-tm-eyn about this condition. His uqbrdrih-vr-ems was acting as a Turkmen patient account specialist. I discussed operative and non operative reatment options The patient would like to proceed with surgery, beginning with his right hand. The risks and benefits of operative treatment were discussed with the patient and the patient wishes to proceed with surgery. These risks include, but are not limited to risk of damage to blood vessels, nerves, tendons, infection, recurrence, incomplete relief of preoperative symptoms, persistent pain, possible need for further surgery and the risks associated with regional blocks and anesthesia. The plan is to take the patient to the operating room sometime on 08/29/24 for the following procedures: 1. Right ring finger partial Dupuytrens fasciectomy, under general 2. Right small finger REPEAT partial Dupuytrens fasciectomy, under general All of the preoperative paperwork including the consent was reviewed today. All the patient's questions were answered. He denies Diabetes, blood thinners, asthma, heart, kidney issues He has COPD, which is well-controlled with his inhaler. 3. Left middle finger Dupuytrens contracture MCP 25/PIP 10 It will be it see what this is like after we have the correction of the ring finger. We can discuss treatment options at a later appointment 4. 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 Coding Level of Care Code Est Pt Level 4 (67582) Diagnoses Dupuytren's contracture of right hand M72.0 Dupuytren's contracture of left hand M72.0 COPD (chronic obstructive pulmonary disease) J44.9
== END 2024-08-20 10:47 | disposition home or self-care (01) ==
PROVIDERS: PCP Internal Medicine; Visit Provider Orthopaedic Surgery
DX: M72.0 Palmar fascial fibromatosis [Dupuytren] (principal); J44.9 Chronic obstructive pulmonary disease, unspecified
CPT/HCPCS: 99214

== ENCOUNTER → 2024-08-20 08:54 | Outpatient (BNVA) | payer MEDICARE, SELFPAY | PROVIDERS: PCP Internal Medicine; Visit Provider Orthopaedic Surgery | DX: M72.0 Palmar fascial fibromatosis [Dupuytren] (principal) | CPT/HCPCS: 99212 ==

== ENCOUNTER 2024-08-29 09:45 | Day surgery (SDC) | payer MEDICARE, SELFPAY ==
[2024-08-19 08:21] VITALS: BMI 30.9
--- NOTE | 2024-08-27 15:13 | P.CONAN_ITS ---
Documented by User: Stacey Bradley NP 08/27/24 15:14 HPI - Anesthesia Eval Consult details Narrative: 74yo M for Right Ring Finger Dupuytrens Contracture Release,REPEAT Small Finger Dupuytrens Release PMFSH Active Problems Active Problems: All Active Problems Hyperglycemia (Acute) Dupuytren's contracture of left hand (Acute) Total bilirubin, elevated (Acute) Hypertension (Acute) Shoulder pain, left (Acute) Shoulder pain, right (Acute) Tear of medial meniscus of left knee (Acute) Annual physical exam (Acute) Knee locking (Acute) Headache (Acute) Muscle spasms of neck (Acute) Anxiety (Acute) H/O colonoscopy (Acute) Dupuytren's contracture of right hand (Acute) Knee pain (Acute) Sciatica (Acute) Pes anserine bursitis (Acute) Hyperlipidemia (Acute) COPD (chronic obstructive pulmonary disease) (Acute) Ex-smoker (Acute) Past Medical History Medical History Dupuytren's contracture of right hand Knee pain Sciatica Pes anserine bursitis COPD (chronic obstructive pulmonary disease) Ex-smoker Hyperlipidemia Eczema Chronic anxiety Family History Family History Father No problems noted. Family history of problems with anesthesia: No Surgical History Surgical History Hx of hand surgery Hx of arthroscopic knee surgery H/O colonoscopy History of Problems with Anesthesia: No Social History Social History Housing: House Are you a primary care management specialist to a significant other at home: No Do you presently have visiting nurse or other home services: No Alcohol intake: never Patient Tobacco Use Status: Former Tobacco user Tobacco use type: Cigarette e-Cigarette/Vaping Use: Never Used Second Hand Smoke Exposure: No Use of substances other than those prescribed or required for medical reasons: No Have you been hit, kicked, punched, or otherwise hurt by someone within the past year? If so, by whom?: No Spiritual Healthcare Practices: none Religion Healthcare Practices: Restoration Cultural Healthcare Practices: none Are you DNR?: No Advance Directives: No (spouse & dtr primary contacts) Advance Directives on File: No Recently lost weight without trying: No Eating poorly because of decreased appetite: No Nutrition Risks: No Nutritional Risk Poor oral hygiene: No (upper & lower full denture) service: No Current occupational status: retired Current occupation: rt handed Cognitive needs: No Hearing needs: No Vision needs: No Meds Allergies Allergy/AdvReac Type Severity Reaction Status Date / Time No Known Allergies Allergy Verified 08/20/24 09:15 Exam Height,Weight and Vital Signs: Height 5 ft 5 in Weight 84.368 kg Assessment and Plan Assessment Anesthesia Assessment: Chart Reviewed Final Anesthetic Review Family History of Problems with Anesthesia: No History of Problems with Anesthesia: No Documented by User: Chrissy Mo MD 08/29/24 10:59 PMFSH Past Medical History Medical History Dupuytren's contracture of right hand Knee pain Sciatica Pes anserine bursitis COPD (chronic obstructive pulmonary disease) Ex-smoker Hyperlipidemia Eczema Chronic anxiety Family History Family History Father No problems noted. Surgical History Surgical History Hx of hand surgery Hx of arthroscopic knee surgery H/O colonoscopy Social History Social History Housing: House Are you a primary care management specialist to a significant other at home: No Do you presently have visiting nurse or other home services: No Alcohol intake: never Patient Tobacco Use Status: Former Tobacco user Tobacco use type: Cigarette e-Cigarette/Vaping Use: Never Used Second Hand Smoke Exposure: No Use of substances other than those prescribed or required for medical reasons: No Have you been hit, kicked, punched, or otherwise hurt by someone within the past year? If so, by whom?: No Spiritual Healthcare Practices: none Religion Healthcare Practices: Restoration Cultural Healthcare Practices: none Are you DNR?: No Advance Directives: No (spouse & dtr primary contacts) Advance Directives on File: No Recently lost weight without trying: No Eating poorly because of decreased appetite: No Nutrition Risks: No Nutritional Risk Poor oral hygiene: No (upper & lower full denture) service: No Current occupational status: retired Current occupation: rt handed Cognitive needs: No Hearing needs: No Vision needs: No Meds Allergies Allergy/AdvReac Type Severity Reaction Status Date / Time No Known Allergies Allergy Verified 08/20/24 09:15 Exam Airway Mallampati Class: II TM Dist: >3cm Neck ROM: Full Heart: rrr Lungs: cta Assessment and Plan Assessment Anesthesia Assessment: Anesthesia Plan Discussed Final Anesthetic Review NPO: Yes ASA Class: III Final Preanesthetic Review: No Changes in Pt Med Stat, Meds/Allgs Chart Reviewed, Consent Obtained/Reviewed and Anes Risks/Benef Reviewed Patient Risk: Intermediate Procedure Risk: Intermediate Anesthetic Plan Anesthetic Plan: GA and Regional Block Disposition: Standard PACU
[2024-08-29] VITALS (8 sets, daily range): BP systolic 127–154; BP diastolic 54–85; PULSE 67–92; RESP 18; TEMP 36.8; O2SAT 95–98; BMI 30.8
--- NOTE | 2024-08-29 10:06 | P.OP_ITS ---
Operative Note Operative Note Date of Service: 08/29/24 Narrative: Preop diagnosis: 1. Right ring finger Dupuytren's contracture 2. Right small finger recurrent Dupuytren's contracture Postop diagnosis: Same Procedure: 1. Right ring finger Partial Dupuytren's fasciectomy 2. Right small finger partial Dupuytren's fasciectomy in the palm Surgeon: Christine Monroe MD Glass Vial Bending Conveyor Feeder: Mg MUIR Anesthesia: General anesthesia plus regional block Findings: Right ring finger improved to MCP 5 degree, PIP 0 degree, right small finger improved to MCP 10 degree, PIP 40 degrees Implants: None Tourniquet time: 56 minutes EBL: 5.0 ml Specimen: Dupuytren's cords submitted for histopathology Drains: None Complications: None Disposition: Brought to the recovery room in stable condition Plan: Follow-up in 10-14 days for wound check, suture removal and to check pathology OT appt on day of f/u to make a custom night spint and to begin OT Indications: The patient is 74 years old with Dupuytren's contractures of the right ring and small fingers. The right small finger contracture is recurrent . The risks and benefits of operative treatment, including but not limited to risk of damage to blood vessels, nerves, tendons, infection, recurrence, persistent pain or numbness, incomplete resolution of preoperative symptoms, or need for further surgery were discussed with the patient and they wished to proceed with surgery. Procedure: Once consent was obtained patient was brought back to the operating suite and placed in the operating table in a supine position. A regional block was performed by the anesthesia team. Perioperative antibiotics and anesthesia was administered by the anesthesia team. A tourniquet was applied to the proximal aspect of the right upper extremity and the limb was prepped and draped in a standard surgical fashion. The limb was elevated exsanguinated with Esmarch bandage and the tourniquet inflated to 250 mm of mercury for a total tourniquet time of 56 minutes. I made a Satish type incision extending along the Dupuytren's cord from the mid palm to the middle phalanx of the right ring finger. The incision was made with a 15. Blade through the skin the subcutaneous tissues. I then carefully dissected down to the level of the Dupuytren's cord beginning at the proximal aspect of the incision. This was done using tenotomy and iris scissors. Care was taken to protect the nearby neurovascular structures. The Dupuytren's cord was cut at its proximal aspect using tenotomy scissors. It was then grasped with an Allis clamp. The Dupuytren's cord was then carefully dissected free in a proximal to distal direction using tenotomy and iris scissors and again taking care to protect the nearby neurovascular structures. At about the A1 lionel area there was a cord extending from the central cord to the ring finger across the volar aspect of the 4th webspace to the small finger causing the MCP flexion contracture. This was released under direct vision using iris scissors, then allowing the small finger MCP joint to be extended to about 10 degrees from full extension. It should be noted that the skin at the palmar digital crease of the ring finger was somewhat macerated, as he had a fairly severe MCP flexion contracture that had been in place for a long time. I did again wash the skin with some ChloraPrep. The Satish incision was extended distally to the middle phalanx. Again the incision was made through the skin to the subcutaneous tissues using a 15. Blade. Tenotomy and iris scissors were used to carefully dissect down to the level of the Dupuytren's cord. The Dupuytren's cord was carefully dissected free from the skin, flexor tendon sheath, proximal and middle phalanxes with care being taken to protect the radial and ulnar neurovascular bundles. The Dupuytren's cords were then removed from the patient and placed on the back table to be sent for histopathology. We improved the right ring finger range of motion to MCP 5/PIP 0, and the right small finger to MCP 10 /PIP 40. At this point the tourniquet was deflated and hemostasis obtained with a brief period of local pressure . The wound was copiously irrigated with normal saline. skin edges were reapproximated with 4-0 and 5-0 Prolene suture. The wound was infiltrated with some 0.25% plain Marcaine for postop pain control and a sterile dressing and volar splint holding the small and ring fingers in extension was applied. The patient appears to have tolerated the procedure well and with no complications. All digits were well vascularized conclusion of the case.
[2024-08-29] MEDS: Lactated Ringers 1,000 ML 100 ML IVCONT (10:32)
--- NOTE | 2024-08-29 11:37 | MHC.SHP ---
Pre-Procedural Eval Section A - 24 Hr Update-Section A only Date of Service: 08/29/24 The patient is an INPATIENT: No The patient has been examined within 24 hours of the surgical procedure. The History & Physical has been completed within 30 days and I have reviewed it.: Yes Section B - Complete if H&P > 30 days Chief Complaint: Palmar fascial fibromatosis [Dupuytren] Allergies: Allergies Allergy/AdvReac Type Severity Reaction Status Date / Time No Known Allergies Allergy Verified 08/20/24 09:15 Plan I have reviewed the history and physical and performed a pertinent physical examination on my patient. No changes have occurred unless specified. Time Spent With Patient Time: Total time managing care of this patient today ____ minutes.
== END 2024-08-29 15:36 | disposition home or self-care (01) ==
PROVIDERS: PCP Internal Medicine; Visit Provider Orthopaedic Surgery
PROC: (CPT 26045; principal; 2024-08-29 11:30)
DX: M72.0 Palmar fascial fibromatosis [Dupuytren] (principal); J44.9 Chronic obstructive pulmonary disease, unspecified; E78.5 Hyperlipidemia, unspecified; F41.8 Other specified anxiety disorders; L30.9 Dermatitis, unspecified; Z98.890 Other specified postprocedural states; Z87.891 Personal history of nicotine dependence
CPT/HCPCS: 26123; 26125; 88304; J0131; J0665; J0690; J1100; J2003; J2004; J2250; J2704; J2795; J3010

== ENCOUNTER → 2024-08-29 09:45 | Outpatient (BNV) | payer MEDICARE, SELFPAY | PROVIDERS: PCP Internal Medicine; Visit Provider Orthopaedic Surgery | DX: M72.0 Palmar fascial fibromatosis [Dupuytren] (principal) | CPT/HCPCS: 26123; 26125 ==

== ENCOUNTER 2024-09-10 08:46 | Outpatient (AMB) | payer MEDICARE, SELFPAY ==
--- NOTE | 2024-09-10 09:01 | MHC.OFFVIS ---
Intake Visit Reasons: PO-Rt RF&SF Dupuytrens 08/29/24 Intake Note: Redd 74 yr old right hand dominant male presents today for his Post Op visit for his right RF&SF Dupuytrens 08/29/24. Dressing removed in office. States he has no pain just itchy possible due to dressing and dry skin. Allergies No Known Allergies Allergy (Verified 09/10/24 09:15) HPI HPI PO-Rt RF&SF Dupuytrens 08/29/24: Details: Redd is a 74 year old right hand dominant [place] Citizen speaking man, here with his son, S/P right ring & small finger partial dupuytrens fasciectomy, DOS: 08/29/24. He says he is doing well and denies any pain. He is very happy with the results of his surgery. He complains of his skin being itchy & dry, which he finds uncomfortable. He has some mild numbness to the ulnar side of his small finger, and normal sensation to the rest of his hand. He also complains of some mild pain at the base of his thumbs, worse with overuse or gripping activities. He says he has a hx of a right small finger partial fasciectomy done in ~[address] Macedo. He has contractures of the right ring & small fingers, as well as the left middle finger [facility] Medical History Dupuytren's contracture of right hand Knee pain Sciatica Pes anserine bursitis COPD (chronic obstructive pulmonary disease) Ex-smoker Hyperlipidemia Eczema Chronic anxiety Surgical History Hx of hand surgery Hx of arthroscopic knee surgery H/O colonoscopy Family History Father No problems noted. Social History Housing: House Are you a primary career coach to a significant other at home: No Do you presently have visiting nurse or other home services: No Alcohol intake: never Patient Tobacco Use Status: Former Tobacco user Tobacco use type: Cigarette e-Cigarette/Vaping Use: Never Used Second Hand Smoke Exposure: No service: No Current occupational status: retired Current occupation: rt handed Cognitive needs: No Hearing needs: No Vision needs: No Review of Systems Const All systems reviewed & are unremarkable except as noted in HPI and below Physical Exam Const General: no acute distress and alert Orientation/consciousness: patient oriented x3 Neuro General: patient oriented x3 Extrem Other: The patient was alert oriented and in no acute distress The incision is healing well with no erythema drainage or evidence of infection. Most sutures removed and Steri-Strips applied Right ring finger: MCP 20/PIP 0 We have this to full extension in the OR, but he does have significant tightness of the flexor tendons from being held in a flexed position for so long. Right small finger: MCP 20/ PIP 40 He tends to hold his ring & small fingers at ~45 degrees of MCP flexion He appears somewhat limited in passive extension by flexor tendon tightness & skin tightness With encouragement I was able to get him to bring all of his fingers close to a weak fist He has a Dupuytrens contracture of the left middle finger MCP 25/PIP 10 Sensation is intact to all digits today Cap refill is brisk Pathology report 08/30/24 Diagnosis Soft tissue, palmar, excision: Dense, nodular fibroblastic tissue consistent with palmar fibromatosis (Dupuytren's contracture) Psych Appearance: grossly normal Affect: normal affect Attitude: cooperative Assessment & Plan Assessment & Plan (1) Dupuytren's contracture of right hand: Code(s): M72.0 - Palmar fascial fibromatosis [Dupuytren] Category: Medical (2) Dupuytren's contracture of left hand: Code(s): M72.0 - Palmar fascial fibromatosis [Dupuytren] Category: Medical (3) COPD (chronic obstructive pulmonary disease): Code(s): J44.9 - Chronic obstructive pulmonary disease, unspecified Category: Medical Plan Assessment & Plan: 1. Right ring finger Dupuytrens contracture, S/P release DOS: 08/29/24 Pre-operative: MCP 90/PIP 10 Operatively: MCP 5/PIP 0 Now with MCP: 20/PIP 0, he tends to hold his finger with the PIP joint at ~45 degrees of flexion when at rest 2. Right small finger Dupuytrens contracture, S/P release in palm DOS: 08/29/24 Pre-operative: MCP 45/PIP 30 Operatively MCP 10/PIP 40 Now: MCP 20/PIP 40, he tends to hold his finger with the PIP joint at ~45 degrees of flexion when at rest S/P previous partial fasciiectomy, DOS: ~2019, by Dr. Macedo The patient appears to be doing well post-operatively I educated him about the post-operative course He was fitted for a custom finger spica splint, to be worn until he is seen by OT hand therapy He currently does not have an OT hand therapy appointment scheduled. I ordered OT to have them make him a custom thermoplastic finger spica splint, to be worn overnight. He will also work on gentle ROM exercises with them & at home I discussed activity modifications, he is to lift nothing heavier than a cellphone for the next two weeks He should avoid any underwater activities for the next 5 days He should gently massage about the incision site to reduce the risk of hypersensitivity Please note that the patient told a need a that he did not want to participate in hand therapy in wanted to do it himself. We are going to do our best to encouraged him to at least go to OT to get his nighttime splint fabricated, and then 2 strongly advise him to participate with therapy. He will follow up next week for a wound check & ROM check 3. Left middle finger Dupuytrens contracture MCP 25/PIP 10 We can discuss treatment options at a later appointment 4. 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 Orders: Orders OT Evaluation and Treatment Today M72.0 - Palmar fascial fibromatosis [Dupuytren] Coding Level of Care Code Global (66052) Diagnoses Dupuytren's contracture of right hand M72.0 Dupuytren's contracture of left hand M72.0 COPD (chronic obstructive pulmonary disease) J44.9
== END 2024-09-10 10:03 | disposition home or self-care (01) ==
PROVIDERS: PCP Internal Medicine; Visit Provider Orthopaedic Surgery
DX: M72.0 Palmar fascial fibromatosis [Dupuytren] (principal); J44.9 Chronic obstructive pulmonary disease, unspecified
CPT/HCPCS: 99024

== ENCOUNTER → 2024-09-10 08:46 | Outpatient (BNVA) | payer MEDICARE, SELFPAY | PROVIDERS: PCP Internal Medicine; Visit Provider Orthopaedic Surgery | DX: M72.0 Palmar fascial fibromatosis [Dupuytren] (principal); J44.9 Chronic obstructive pulmonary disease, unspecified | CPT/HCPCS: 99212 ==

== ENCOUNTER 2024-09-17 08:49 | Outpatient (AMB) | payer MEDICARE, SELFPAY ==
--- NOTE | 2024-09-17 09:02 | MHC.OFFVIS ---
Intake Visit Reasons: PO-Rt RF&SF Dupuytrens 08/29/24-ROM check Intake Note: Redd 74 yr old right hand dominant male presents today for his Post Op visit for his right RF&SF Dupuytrens 08/29/24. States he has done his own hand exercise at home. States he has not gone to P.T . Remaining sutures removed and steri strips applied. Allergies No Known Allergies Allergy (Verified 09/17/24 09:03) HPI HPI PO-Rt RF&SF Dupuytrens 08/29/24-ROM check: Details: Redd is a 74 year old right hand dominant Sammar[place] speaking man, here with his son, S/P right ring & small finger partial dupuytrens fasciectomy, DOS: 08/29/24. He says he is doing well and denies any pain. He is very happy with the results of his surgery. We had recommended and made referral for OT hand therapy. However the patient decided he really just wanted to do the hand therapy himself. He has not been there to have a nighttime extension splint made either. He says he has a hx of a right small finger partial fasciectomy done in ~[address] Macedo. He has contractures of the right ring & small fingers, as well as the left middle finger PFSH Medical History Dupuytren's contracture of right hand Knee pain Sciatica Pes anserine bursitis COPD (chronic obstructive pulmonary disease) Ex-smoker Hyperlipidemia Eczema Chronic anxiety Surgical History Hx of hand surgery Hx of arthroscopic knee surgery H/O colonoscopy Family History Father No problems noted. Social History Housing: House Are you a primary daycare provider to a significant other at home: No Do you presently have visiting nurse or other home services: No Alcohol intake: never Patient Tobacco Use Status: Former Tobacco user Tobacco use type: Cigarette e-Cigarette/Vaping Use: Never Used Second Hand Smoke Exposure: No service: No Current occupational status: retired Current occupation: rt handed Cognitive needs: No Hearing needs: No Vision needs: No Physical Exam Extrem Other: The patient was alert oriented and in no acute distress. His incision is healing well with no erythema drainage or evidence of infection. There is some dried blood. All sutures were removed today. Right ring finger: MCP 30/PIP 0 We have this to full extension in the OR, but he does have significant tightness of the flexor tendons from being held in a flexed position for so long. He says he has been doing exercises at home, but also does not have a nighttime extension splint. Right small finger: MCP 30/ PIP 30 He tends to hold his ring & small fingers at ~45 degrees of MCP flexion He appears somewhat limited in passive extension by flexor tendon tightness & skin tightness With encouragement I was able to get him to bring all of his fingers close to a weak fist He has a Dupuytrens contracture of the left middle finger MCP 25/PIP 10 Sensation is intact to all digits today Cap refill is brisk Assessment & Plan Assessment & Plan (1) Joint stiffness of hand: Code(s): M25.649 - Stiffness of unspecified hand, not elsewhere classified Category: Medical (2) Dupuytren's contracture of left hand: Code(s): M72.0 - Palmar fascial fibromatosis [Dupuytren] Category: Medical (3) Dupuytren's contracture of right hand: Code(s): M72.0 - Palmar fascial fibromatosis [Dupuytren] Category: Medical Plan Assessment & Plan: 1. Right ring finger Dupuytrens contracture, S/P release DOS: 08/29/24 Pre-operative: MCP 90/PIP 10 Operatively: MCP 5/PIP 0 Now with MCP: 30/PIP 0, he tends to hold his finger with the PIP joint at ~45 degrees of flexion when at rest 2. Right small finger Dupuytrens contracture, S/P release in palm DOS: 08/29/24 Pre-operative: MCP 45/PIP 30 Operatively MCP 10/PIP 40 Now: MCP 30/PIP 30, he tends to hold his finger with the PIP joint at ~45 degrees of flexion when at rest S/P previous small finger partial fasciiectomy, DOS: ~2018, by Dr. Macedo The patient appears to be doing well post-operatively I educated him about the post-operative course I talked to him again about the importance of going to OT both to get his nighttime extension splint and also to have them help him work on hand range of motion. This can definitely affect how far he can get his hand extended at that ring finger. I ordered OT to have them make him a custom thermoplastic finger spica splint, to be worn overnight. He will also work on gentle ROM exercises with them & at home. We also gave them a call here in clinic and had them talk to his son. His son helped set up an appointment for next . I discussed activity modifications, he is to lift nothing heavier than a cellphone for the next two weeks He should gently massage about the incision site to reduce the risk of hypersensitivity He will follow up in 4-6 weeks to see how he is doing 3. Left middle finger Dupuytrens contracture MCP 25/PIP 10 We can discuss treatment options at a later appointment 4. 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
== END 2024-09-17 09:32 | disposition home or self-care (01) ==
PROVIDERS: PCP Internal Medicine; Visit Provider Orthopaedic Surgery
DX: M25.649 Stiffness of unspecified hand, not elsewhere classified (principal); M72.0 Palmar fascial fibromatosis [Dupuytren]
CPT/HCPCS: 99024

== ENCOUNTER → 2024-09-17 08:49 | Outpatient (BNVA) | payer MEDICARE, SELFPAY | PROVIDERS: PCP Internal Medicine; Visit Provider Orthopaedic Surgery | DX: Z48.02 Encounter for removal of sutures (principal); M72.0 Palmar fascial fibromatosis [Dupuytren]; M25.641 Stiffness of right hand, not elsewhere classified | CPT/HCPCS: 99212 ==

== ENCOUNTER 2024-10-29 10:33 | Outpatient (AMB) | payer MEDICARE, SELFPAY ==
--- NOTE | 2024-10-29 10:46 | AM.OFFVISMDC ---
Intake Intake Visit Reasons: SWV [id number] Allergies No Known Allergies Allergy (Verified 09/17/24 09:03) [facility] Medical History Dupuytren's contracture of right hand Knee pain Sciatica Pes anserine bursitis COPD (chronic obstructive pulmonary disease) Ex-smoker Hyperlipidemia Eczema Chronic anxiety Surgical History Hx of hand surgery Hx of arthroscopic knee surgery H/O colonoscopy Family History Father No problems noted. Social History Housing: House Are you a primary livestock caretaker to a significant other at home: No Do you presently have visiting nurse or other home services: No Alcohol intake: never Patient Tobacco Use Status: Former Tobacco user Tobacco use type: Cigarette e-Cigarette/Vaping Use: Never Used Second Hand Smoke Exposure: No service: No Current occupational status: retired Current occupation: rt handed Cognitive needs: No Hearing needs: No Vision needs: No Coding
--- NOTE | 2024-10-29 10:47 | MHC.PC.OV ---
Vital Signs 10/29/24 10:48 Height 5 ft 5 in Weight 183 lb BMI 30.4 BP 130/72 Blood Pressure Location Lt brachial Position Sitting Respiration 18 Pulse 69 Pulse Source Pulse Oximeter Temp 98.7 F Temp Source Oral Pulse Oximetry (%) 96 Oxygen Delivery Method Room Air Intake Visit Reasons: PE. Intake Note: Pt is here today for PE. Allergies No Known Allergies Allergy (Verified 10/29/24 10:48) Medication List - Last Reconciled 10/29/24 by Carla Reyes MD Anoro Ellipta 62.5-25 mcg/actuation (umeclidinium-vilanterol) 1 inh inhalation DAILY NS atorvastatin 10 mg PO DAILY diclofenac sodium 1% 2 grams topical QID lisinopril 5 mg PO DAILY metoprolol succinate ER 50 mg PO DAILY paroxetine HCl 40 mg PO DAILY triamcinolone acetonide 0.1% 1 appl topical BID Tobacco use date assessed: 10/29/24 Fall risk assessment: No Falls in past year Last assessed Fall Risk: 10/29/24 Dental Screening Dental Screen Date: 10/29/24 Did you have a dental visit in the last 12 months?: No Did you have a dental problem in the last 6 months where you did not have access to dental care?: No Was dental information given to patient?: Patient declined HPI PE. HPI Details Pt presents for PE. PFSH Medical History Dupuytren's contracture of right hand Knee pain Sciatica Pes anserine bursitis COPD (chronic obstructive pulmonary disease) Ex-smoker Hyperlipidemia Eczema Chronic anxiety Surgical History Hx of hand surgery Hx of arthroscopic knee surgery H/O colonoscopy Family History Father No problems noted. Social History Housing: House Are you a primary career resource technician to a significant other at home: No Do you presently have visiting nurse or other home services: No Alcohol intake: never Patient Tobacco Use Status: Former Tobacco user Tobacco use type: Cigarette e-Cigarette/Vaping Use: Never Used Second Hand Smoke Exposure: No service: No Current occupational status: retired Current occupation: rt handed Cognitive needs: No Hearing needs: No Vision needs: No Questionnaire PHQ-9 Over the last 2 weeks, how often have you been bothered by any of the following problems? 1. Little interest or pleasure in doing things: not at all 2. Feeling down, depressed, or hopeless: not at all 3. Trouble falling or staying asleep, or sleeping too much: not at all 4. Feeling tired or having little energy: not at all 5. Poor appetite or overeating: not at all 6. Feeling bad about yourself - or that you are a failure or have let yourself or your family down: not at all 7. Trouble concentrating on things, such as reading the newspaper or watching television: not at all 8. Moving or speaking so slowly that other people could have noticed. Or the opposite - being so fidgety or restless that you have been moving around a lot more than usual: not at all 9. Thoughts that you would be better off or of hurting yourself in some way: not at all Total score: 0 Depression Screening Interpretation: Negative Depression Screening Done: Yes 31398 - PHQ-9 Billing: Yes Source: Developed by Drs. Matthew Parker, Miya Neri, David Abernathy and colleagues, with an educational nnamdi from [employer]. Thrive Questionnaire Date Thrive assessed: 10/29/24 I am a: Patient What is your living situation today?: I choose not to answer this question Within the past 12 months, did the food you bought not last and you didn't have the money to get more?: I choose not to answer this question Within the past 12 months, did you worry whether your food would run out before you got money to buy more?: I choose not to answer this question Do you have trouble paying for medicines?: I choose not to answer this question Do you have trouble getting transportation to medical appointments?: I choose not to answer this question Do you have trouble paying your heating and electricity bill?: I choose not to answer this question Do you have trouble taking care of your child, family member or friend?: I choose not to answer this question Do you have trouble with day-to-day activities such as bathing, preparing meals, shopping, managing finances, etc.?: I choose not to answer this question Are you interested in more education?: I choose not to answer this question Please select the resources that you would like help with: None Currently or been in a relationship where the following occur: I choose not to answer THRIVE Score: 0 AUDIT C Alcohol Use Questionnaire (AUDIT-C) 1. How often do you have a drink containing alcohol?: Never 3. How often do you have six or more drinks on one occasion?: Never Total Score: 0 CORRINA-7 AMB Questionnaire CORRINA-7 Date CORRINA - 7 assessed: 10/29/24 Feeling nervous, anxious, or on edge: 0 = Not at all Not being able to stop or control worryin = Not at all Worrying too much about different things: 0 = Not at all Trouble relaxin = Not at all Being so restless that it is hard to sit still: 0 = Not at all Becoming easily annoyed or irritable: 0 = Not at all Feeling afraid as if something awful might happen: 0 = Not at all Total CORRINA-7 score (0-4 normal; 5-9 mild; 10-14 moderate; 15-21 severe): 0 Source: Developed by Drs. Matthew Parker, Miya Neri, David Abernathy and colleagues, with an educational nnamdi from [employer]. CORRINA-7 Assessment Billing CORRINA-7 Assessment Tool: CORRINA-7 Assessment 25940 Review of Systems Const All systems reviewed & are unremarkable except as noted in HPI and below Reports no additional complaints Eyes Reports no additional complaints ENT Reports no additional complaints Card Reports no additional complaints Resp Reports no additional complaints GI Reports no additional complaints Reports no additional complaints Physical exam (Primary Care) Vital Signs: Last Vital Signs Temp 98.7 F 10/29/24 10:48 Pulse 69 10/29/24 10:48 Resp 18 10/29/24 10:48 BP 130/72 10/29/24 10:48 Pulse Ox 96 10/29/24 10:48 Oxygen Delivery Method Room Air 10/29/24 10:48 BMI result Body Mass Index 30.4 Tobacco/Smoking Status: Tobacco use Status Tobacco use date assessed 10/29/24 10/29/24 10:56 Patient Tobacco Use Status Former Tobacco user 10/29/24 10:56 Tobacco use type Cigarette 10/29/24 10:56 e-Cigarette/Vaping Use Never Used 10/29/24 10:56 PHQ-9: PHQ-9 Score PHQ-9: Total score 0 10/29/24 10:56 Depression Screening Interpretation: Negative Thrive Assessment: Date of Thrive Assessment Date Thrive assessed 10/29/24 10/29/24 10:56 Currently or been in a relationship where the following occur: I choose not to answer Const General: no acute distress HENMT Head: Yes normal to inspection Face and sinus: Yes normal facial exam Throat: Yes posterior oropharynx normal Eyes General: appearance normal, both eyes and all related structures Neck Neck: Yes no lymphadenopathy and Yes supple Resp Effort & Inspection: normal respiratory effort Auscultation: clear to auscultation bilaterally Cardio Rhythm: regular rhythm Heart sounds: S1 normal heart sound present and S2 normal heart sound present GI Inspection: Yes normal to inspection Palpation (GI): Soft to palpation Percussion: Yes normal to percussion Auscultation: normal bowel sounds Coding Level of Care Code Est Pt Prev Care >65y(43859) Diagnoses Hyperlipidemia E78.5 COPD (chronic obstructive pulmonary disease) J44.9 Hypertension I10 Hyperglycemia R73.9 Additional Codes CORRINA-7 Assessment Billing - CORRINA-7 Assessment Tool: CORRINA-7 Assessment 77115 ([id number]) PHQ-9 - 59337 - PHQ-9 Billing: Yes ([id number]) Assessment & Plan Assessment & Plan (1) Hyperlipidemia: Code(s): E78.5 - Hyperlipidemia, unspecified Category: Medical Plan: cont statin (2) COPD (chronic obstructive pulmonary disease): Code(s): J44.9 - Chronic obstructive pulmonary disease, unspecified Category: Medical Plan: cont Anoro (3) Hypertension: Code(s): I10 - Essential (primary) hypertension Category: Medical Plan: cont meds (4) Hyperglycemia: Code(s): R73.9 - Hyperglycemia, unspecified Category: Medical Plan: A1C is 5.8, cont ADA diet, exercise, f/u 6 months Orders: Orders Comprehensive [place]. Panel Fast 6 Months E78.5 - Hyperlipidemia, unspecified, I10 - Essential (primary) hypertension, J44.9 - Chronic obstructive pulmonary disease, unspecified, R73.9 - Hyperglycemia, unspecified Complete Blood Count Auto Diff 6 Months E78.5 - Hyperlipidemia, unspecified, I10 - Essential (primary) hypertension, J44.9 - Chronic obstructive pulmonary disease, unspecified, R73.9 - Hyperglycemia, unspecified Lipid Panel 6 Months E78.5 - Hyperlipidemia, unspecified, I10 - Essential (primary) hypertension, J44.9 - Chronic obstructive pulmonary disease, unspecified, R73.9 - Hyperglycemia, unspecified Hemoglobin A1c 6 Months E78.5 - Hyperlipidemia, unspecified, I10 - Essential (primary) hypertension, J44.9 - Chronic obstructive pulmonary disease, unspecified, R73.9 - Hyperglycemia, unspecified PSA,Total (Free>4and<10) 6 Months E78.5 - Hyperlipidemia, unspecified, I10 - Essential (primary) hypertension, J44.9 - Chronic obstructive pulmonary disease, unspecified, R73.9 - Hyperglycemia, unspecified UA w Microscopic 6 Months E78.5 - Hyperlipidemia, unspecified, I10 - Essential (primary) hypertension, J44.9 - Chronic obstructive pulmonary disease, unspecified, R73.9 - Hyperglycemia, unspecified Medications: Changed From umeclidinium-vilanterol 62.5-25 mcg/actuation (Anoro Ellipta) 1 inh inhalation DAILY 60 ea 3RF To Anoro Ellipta 62.5-25 mcg/actuation (umeclidinium-vilanterol) 1 inh inhalation DAILY 120 ea 3RF NS Refilled metoprolol succinate ER 50 mg PO DAILY 90 tabs 3RF atorvastatin 10 mg PO DAILY 90 tabs 3RF E78.5 - Hyperlipidemia, unspecified lisinopril 5 mg PO DAILY 90 tabs 3RF paroxetine HCl 40 mg PO DAILY 90 tabs 3RF F41.9 - Anxiety disorder, unspecified
[2024-10-29 10:48] VITALS: BP 130/72; PULSE 69; RESP 18; TEMP 37.1; O2SAT 96; BMI 30.4
== END 2024-10-29 11:30 | disposition home or self-care (01) ==
PROVIDERS: PCP Internal Medicine; Visit Provider Internal Medicine
DX: Z00.00 Encounter for general adult medical examination without abnormal findings (principal); E78.5 Hyperlipidemia, unspecified; J44.9 Chronic obstructive pulmonary disease, unspecified; I10 Essential (primary) hypertension; R73.9 Hyperglycemia, unspecified

== ENCOUNTER → 2024-10-29 10:33 | Outpatient (BNVA) | payer MEDICARE, SELFPAY | PROVIDERS: PCP Internal Medicine; Visit Provider Internal Medicine | DX: Z00.00 Encounter for general adult medical examination without abnormal findings (principal); E78.5 Hyperlipidemia, unspecified; I10 Essential (primary) hypertension; R73.9 Hyperglycemia, unspecified; J44.9 Chronic obstructive pulmonary disease, unspecified | CPT/HCPCS: 96127; 99397 ==

== ENCOUNTER 2025-05-22 13:02 | Outpatient (AMB) | payer MEDICARE, SELFPAY ==
[2025-05-22 13:39] VITALS: BP 114/70; PULSE 73; RESP 18; TEMP 36.8; O2SAT 94; BMI 31.3
--- NOTE | 2025-05-22 13:39 | MHC.PC.OV ---
Vital Signs 05/22/25 13:39 Height 5 ft 5 in Weight 188 lb BMI 31.3 BP 114/70 Blood Pressure Location Rt brachial Position Sitting Respiration 18 Pulse 73 Pulse Source Pulse Oximeter Temp 98.3 F Temp Source Oral Pulse Oximetry (%) 94 Oxygen Delivery Method Room Air Intake Visit Reasons: 6 months follow up Intake Note: Pt is here today for 6 months follow up visit. Allergies No Known Allergies Allergy (Verified 05/22/25 14:11) Medication List - Last Reconciled 05/22/25 by Carla Reyes MD Anoro Ellipta 62.5-25 mcg/actuation (umeclidinium-vilanterol) 1 inh inhalation DAILY NS atorvastatin 10 mg PO DAILY diclofenac sodium 1% 2 grams topical QID lisinopril 5 mg PO BID metoprolol succinate ER 50 mg PO DAILY paroxetine HCl 40 mg PO DAILY triamcinolone acetonide 0.1% 1 appl topical BID Tobacco use date assessed: 05/22/25 Fall risk assessment: No Falls in past year Last assessed Fall Risk: 05/22/25 Dental Screening Dental Screen Date: 05/22/25 Did you have a dental visit in the last 12 months?: Yes Did you have a dental problem in the last 6 months where you did not have access to dental care?: No Was dental information given to patient?: Patient has dentist HPI 6 months follow up HPI Details Pt presents for f/u HTN, hyperlipid, COPD, stable on meds. PFSH Medical History Dupuytren's contracture of right hand Knee pain Sciatica Pes anserine bursitis COPD (chronic obstructive pulmonary disease) Ex-smoker Hyperlipidemia Eczema Chronic anxiety Surgical History Hx of hand surgery Hx of arthroscopic knee surgery H/O colonoscopy Family History Father No problems noted. Social History Housing: House Are you a primary care management coordinator to a significant other at home: No Do you presently have visiting nurse or other home services: No Alcohol intake: never Patient Tobacco Use Status: Former Tobacco user Tobacco use type: Cigarette e-Cigarette/Vaping Use: Never Used Second Hand Smoke Exposure: No service: No Current occupational status: retired Current occupation: rt handed Cognitive needs: No Hearing needs: No Vision needs: No Questionnaire Thrive Questionnaire Date Thrive assessed: 06/20/24 I am a: Patient What is your living situation today?: I choose not to answer this question Within the past 12 months, did the food you bought not last and you didn't have the money to get more?: I choose not to answer this question Within the past 12 months, did you worry whether your food would run out before you got money to buy more?: I choose not to answer this question Do you have trouble paying for medicines?: I choose not to answer this question Do you have trouble getting transportation to medical appointments?: I choose not to answer this question Do you have trouble paying your heating and electricity bill?: I choose not to answer this question Do you have trouble taking care of your child, family member or friend?: I choose not to answer this question Do you have trouble with day-to-day activities such as bathing, preparing meals, shopping, managing finances, etc.?: I choose not to answer this question Are you interested in more education?: I choose not to answer this question Please select the resources that you would like help with: None Currently or been in a relationship where the following occur: I choose not to answer THRIVE Score: 0 AUDIT C Alcohol Use Questionnaire (AUDIT-C) 1. How often do you have a drink containing alcohol?: Never 3. How often do you have six or more drinks on one occasion?: Never Total Score: 0 CORRINA-7 AMB Questionnaire CORRINA-7 Date CORRINA - 7 assessed: 10/29/24 Source: Developed by Drs. Matthew Parker, Miya Neri, David Abernathy and colleagues, with an educational nnamdi from [employer]. Review of Systems Const All systems reviewed & are unremarkable except as noted in HPI and below Eyes Reports no additional complaints ENT Reports no additional complaints Card Reports no additional complaints Resp Reports no additional complaints GI Reports no additional complaints Reports no additional complaints Musc Reports no additional complaints Physical exam (Primary Care) Vital Signs: Last Vital Signs Temp 98.3 F 05/22/25 13:39 Pulse 73 05/22/25 13:39 Resp 18 05/22/25 13:39 BP 114/70 05/22/25 13:39 Pulse Ox 94 05/22/25 13:39 Oxygen Delivery Method Room Air 05/22/25 13:39 BMI result Body Mass Index 31.3 Tobacco/Smoking Status: Tobacco use Status Tobacco use date assessed 05/22/25 05/22/25 14:16 Patient Tobacco Use Status Former Tobacco user 05/22/25 13:39 Tobacco use type Cigarette 05/22/25 13:39 e-Cigarette/Vaping Use Never Used 05/22/25 13:39 Thrive Assessment: Date of Thrive Assessment Date Thrive assessed 06/20/24 05/22/25 13:39 Currently or been in a relationship where the following occur: I choose not to answer Const General: no acute distress HENMT Head: Yes normal to inspection Mouth: Normal oral and palatal mucosa present Resp Effort & Inspection: normal respiratory effort Auscultation: clear to auscultation bilaterally Cardio Rhythm: regular rhythm Heart sounds: S1 normal heart sound present and S2 normal heart sound present GI Inspection: Yes normal to inspection Palpation (GI): Soft to palpation Percussion: Yes normal to percussion Auscultation: normal bowel sounds Coding Level of Care Code Est Pt Level 4 (67570) Diagnoses Hyperlipidemia E78.5 Hypertension I10 Hyperglycemia R73.9 Assessment & Plan Assessment & Plan (1) Hyperlipidemia: Code(s): E78.5 - Hyperlipidemia, unspecified Category: Medical Plan: Continue statin (2) Hypertension: Code(s): I10 - Essential (primary) hypertension Category: Medical Plan: Continue current medications (3) Hyperglycemia: Code(s): R73.9 - Hyperglycemia, unspecified Category: Medical Plan: Continue ADA diet check A1c follow-up in 6 months Orders: Orders Hemoglobin A1c 6 Months E78.5 - Hyperlipidemia, unspecified, I10 - Essential (primary) hypertension, R73.9 - Hyperglycemia, unspecified Comprehensive [place]. Panel Fast 6 Months E78.5 - Hyperlipidemia, unspecified, I10 - Essential (primary) hypertension, R73.9 - Hyperglycemia, unspecified Lipid Panel 6 Months E78.5 - Hyperlipidemia, unspecified, I10 - Essential (primary) hypertension, R73.9 - Hyperglycemia, unspecified Medications: New prednisone 50 mg PO DAILY 3 tabs 0RF Changed From lisinopril 5 mg PO DAILY 90 tabs 3RF To lisinopril 5 mg PO BID
== END 2025-05-22 14:45 | disposition home or self-care (01) ==
LOC: HO.HMCC 13:03
PROVIDERS: PCP Internal Medicine; Visit Provider Internal Medicine
DX: E78.5 Hyperlipidemia, unspecified (principal); I10 Essential (primary) hypertension; R73.9 Hyperglycemia, unspecified

== ENCOUNTER → 2025-05-22 13:02 | Outpatient (BNVA) | payer MEDICARE, SELFPAY | PROVIDERS: PCP Internal Medicine; Visit Provider Internal Medicine | DX: I10 Essential (primary) hypertension (principal); E78.5 Hyperlipidemia, unspecified; R73.9 Hyperglycemia, unspecified | CPT/HCPCS: 99212 ==

== ENCOUNTER 2025-05-23 06:37 | Outpatient (REF) | payer MEDICARE, SELFPAY ==
[2025-05-23 10:04] LABS: MANUAL DIFF FLAG NO
[2025-05-23 10:23] LABS: Hematocrit 49.0 % (42.0-52.0); Hemoglobin 16.7 g/dl (14.0-18.0); Imm Gran Abs Auto 0.02 X10*3/uL (0.00-0.03); Imm Gran Pct Auto 0.2 % (0.0-0.4); Lymphocytes Absolute Auto 1.2 X10*3/uL (1.2-4.9); Mean Corpuscular HGB Conc 34.1 g/dl (31.0-36.0); Mean Corpuscular Hemoglobin 30.6 pg (27.0-33.0); Mean Corpuscular Volume 89.7 fL (80.0-98.0); NRBC Abs Auto 0.000 X10*3/uL (0.0-0.012); NRBC Pct Auto 0.0 /100WBC (0.0-0.2); Platelet Count 199 X10*3/uL (160-400); Red Blood Count 5.46 X10*6/uL (4.60-5.80); White Blood Count 8.9 X10*3/uL (4.8-10.8)
[2025-05-23 10:31] LABS: Hemoglobin A1C 179.2236 umol/L; Total Hemoglobin (HGBA1C) 4335.0172 umol/L
[2025-05-23 11:27] LABS: Alanine Aminotransferase 19 U/L (0-40); Albumin Level 4.4 g/dL (3.5-5.0); Alkaline Phosphatase 77 U/L (39-117); Anion Gap 15 (12-20); Aspartate Amino Transferase 31 U/L (5-37); Blood Urea Nitrogen 19 mg/dL (9-16); Calcium 9.5 mg/dL (8.4-10.2); Carbon Dioxide 21 mmol/L (22-29); Chloride 107 mmol/L (96-108); Cholesterol 162 mg/dL (<200); Estimated Glomerular Filt Rate > 60; HDL Cholesterol 46 mg/dL (>40); Potassium 4.1 mmol/L (3.3-5.1); Sodium 139 mmol/L (135-145); Total Protein 7.5 g/dL (6.5-8.0); Triglycerides 53 mg/dL (<150)
[2025-05-23 11:39] LABS: PSA,Total (Free>4and<10) 2.34 ng/mL (0.00-4.00)
== END 2025-05-23 06:38 | disposition home or self-care (01) ==
LOC: HO.HMGCLDS 06:37
PROVIDERS: PCP Internal Medicine; Visit Provider Internal Medicine
DX: I10 Essential (primary) hypertension (principal); J44.9 Chronic obstructive pulmonary disease, unspecified; R73.9 Hyperglycemia, unspecified; E78.5 Hyperlipidemia, unspecified; Z12.5 Encounter for screening for malignant neoplasm of prostate
CPT/HCPCS: 36415; 80053; 80061; 83036; 84153; 85025